=== PATIENT | male | born 1970 | race Caucasian/White ===

== ENCOUNTER 2017-04-05 10:13 | Inpatient (IN) | payer MEDICAID ==
[2017-04-05] MEDS ORDERED: Ondansetron 4 MG/2 ML SDV IVPUSH ONE (10:34)
[2017-04-05] MEDS ORDERED: Sodium Chloride 0.9% 1,000 ML IV STA (10:34)
[2017-04-05] MEDS ORDERED: HYDROmorphone 1 MG/ML Syringe IVPUSH ONE ×2 (10:36→12:41)
[2017-04-05] MEDS: Sodium Chloride 0.9% 10 ML Syringe FLUSH PRN (10:42)
[2017-04-05] MEDS ORDERED: HYDROmorphone 0.5 MG/0.5 ML Syringe IVPUSH ONE (11:12)
[2017-04-05] MEDS ORDERED: Sodium Chloride 0.9% 1,000 ML IV ONE (11:37)
--- NOTE | 2017-04-05 11:48 | EDM.PDOC ---
ED HPI GENERAL MEDICAL PROBLEM - General Chief Complaint: Abdominal Pain Stated Complaint: ABD PAIN Time Seen by Provider: 04/05/17 10:27 Source of Information: Reports: Patient History Limitations: Reports: No Limitations - History of Present Illness INITIAL COMMENTS - FREE TEXT/NARRATIVE: The patient presents with LUQ abdominal pain that radiates into his left chest. He has nausea with it but no vomiting. He has no diarrhea. He has no shortness of breath. He has a history of pancreatitis caused from alcohol. He has had a few flair ups. He last drank alcohol last weekend. He denies fever, chills, or cough. He has no dysuria. Onset: Gradual Duration: Day(s): (2) Location: Reports: Abdomen Quality: Reports: Sharp Severity: Moderate Improves with: Reports: None Worsens with: Reports: Eating Associated Symptoms: Reports: Chest Pain, Nausea/Vomiting. Denies: Fever/Chills , Shortness of Breath Left Abdomen Pain Score (Numeric/FACES): 10 - Related Data Allergies Allergy/AdvReac Type Severity Reaction Status Date / Time Penicillins Allergy Hives Verified 04/05/17 10:20 Home Meds: Home Meds . [No Known Home Meds] 04/05/17 [History] Past Medical History - Past Health History Medical/Surgical History: Denies Medical/Surgical History Gastrointestinal History: Reports: Pancreatitis Social & Family History - Family History Family Medical History: Noncontributory - Tobacco Use Smoking Status *Q: Never Smoker Second Hand Smoke Exposure: No - Recreational Drug Use Recreational Drug Use: No ED ROS GENERAL - Review of Systems Review Of Systems: See Below Constitutional: Reports: No Symptoms HEENT: Reports: No Symptoms Respiratory: Reports: No Symptoms Cardiovascular: Reports: No Symptoms Endocrine: Reports: No Symptoms GI/Abdominal: Reports: Abdominal Pain, Nausea. Denies: Diarrhea, Vomiting : Reports: No Symptoms Musculoskeletal: Reports: No Symptoms Skin: Reports: No Symptoms ED EXAM, GI/ABD - Physical Exam Exam: See Below Exam Limited By: No Limitations General Appearance: Alert, No Apparent Distress Ears: Normal External Exam Nose: Normal Inspection Head: Atraumatic, Normocephalic Neck: Normal Inspection Respiratory/Chest: No Respiratory Distress, Lungs Clear, Normal Breath Sounds Cardiovascular: Regular Rate, Rhythm, No Edema, No Murmur GI/Abdominal Exam: Soft, No Organomegaly, Tender (Generalized tenderness with more pain in the LUQ) Course - Vital Signs Last Recorded V/S: Last Vital Signs Temp 97.6 F 04/05/17 10:16 Pulse 84 04/05/17 10:16 Resp 16 04/05/17 10:16 BP 126/92 H 04/05/17 10:16 Pulse Ox 100 04/05/17 10:16 - Orders/Labs/Meds Orders: Active Orders 24 hr Category Date Time Status EKG 12 Lead [EKG Documentation Completion] [RC] STAT Care 04/05/17 10:37 Active Peripheral IV Care [RC] . DIRECTED Care 04/05/17 10:35 Active Abdomen Series w Chest 1V [CR] Stat Exams 04/05/17 10:34 Taken ETOH [ETHANOL BLOOD MEDICAL] [CHEM] Stat Lab 04/05/17 12:17 Ordered UA W/MICROSCOPIC [URIN] Stat Lab 04/05/17 10:34 Uncollected Sodium Chloride 0.9% [Saline Flush] Med 04/05/17 10:34 Active 10 ml FLUSH ASDIRECTED PRN ED Antiemetic Medication Reflex [OM.PC] Stat Oth 04/05/17 10:35 Ordered Peripheral IV Insertion Adult [OM.PC] Stat Oth 04/05/17 10:34 Ordered Medication Orders Sodium Chloride (Saline Flush) 10 ml FLUSH ASDIRECTED PRN PRN Reason: Keep Vein Open Last Admin: 04/05/17 10:42 Dose: 10 ml Labs: Laboratory Tests 04/05/17 04/05/17 Range/Units 10:34 10:34 WBC 13.68 H (4.23-9.07) K/mm3 RBC 5.92 (4.63-6.08) M/mm3 Hgb 16.3 (13.7-17.5) gm/L Hct 49.4 (40.1-51.0) % MCV 83.4 (79.0-92.2) fl MCH 27.5 (25.7-32.2) pg MCHC 33.0 (32.2-35.5) g/dl RDW Std Deviation 53.0 H (35.1-43.9) fL Plt Count 276 (163-337) K/mm3 MPV 10.8 (9.4-12.3) fl Neut % (Auto) 86.3 H (34.0-67.9) % Lymph % (Auto) 8.0 L (21.8-53.1) % Caldwell % (Auto) 4.6 L (5.3-12.2) % Eos % (Auto) 0.7 L (0.8-7.0) Baso % (Auto) 0.1 (0.1-1.2) % Neut # (Auto) 11.80 H (1.78-5.38) K/mm3 Lymph # (Auto) 1.10 L (1.32-3.57) K/mm3 Caldwell # (Auto) 0.63 (0.30-0.82) K/mm3 Eos # (Auto) 0.09 (0.04-0.54) K/mm3 Baso # (Auto) 0.02 (0.01-0.08) K/mm3 Manual Slide Review Abnormal smear Sodium 137 (136-145) mEq/L Potassium 4.6 (3.5-5.1) mEq/L Chloride 101 (98-107) mEq/L Carbon Dioxide 28 (21-32) mEq/L Anion Gap 12.6 (5-15) BUN 17 (7-18) mg/dL Creatinine 1.1 (0.7-1.3) mg/dL Est Cr Clr Drug Dosing 90.72 mL/min Estimated GFR (MDRD) > 60 (>60) mL/min BUN/Creatinine Ratio 15.5 (14-18) Glucose 98 (74-106) mg/dL Calcium 9.0 (8.5-10.1) mg/dL Total Bilirubin 1.3 H (0.2-1.0) mg/dL AST 34 (15-37) U/L ALT 47 (16-63) U/L Alkaline Phosphatase 77 (46-116) U/L Troponin I < 0.017 (0.00-0.056) ng/mL Total Protein 7.4 (6.4-8.2) g/dl Albumin 3.4 (3.4-5.0) g/dl Globulin 4.0 gm/dL Albumin/Globulin Ratio 0.9 L (1-2) Lipase 1732 H (73-393) U/L Meds: Medications Generic Name Dose Route Start Last Admin Trade Name Freq PRN Reason Stop Dose Admin Sodium Chloride 10 ml 04/05/17 10:34 04/05/17 10:42 Saline Flush FLUSH 10 ml ASDIRECTED PRN Administration Keep Vein Open Discontinued Medications Generic Name Dose Route Start Last Admin Trade Name Nolvia PRN Reason Stop Dose Admin Hydromorphone HCl 1 mg 04/05/17 10:36 04/05/17 10:41 Dilaudid IVPUSH 04/05/17 10:37 1 mg ONETIME ONE Administration Hydromorphone HCl 0.5 mg 04/05/17 11:12 04/05/17 11:17 Dilaudid IVPUSH 04/05/17 11:13 0.5 mg ONETIME ONE Administration Sodium Chloride 1,000 mls @ 1,000 mls/hr 04/05/17 10:34 04/05/17 10:42 Normal Saline IV 04/05/17 11:33 1,000 mls/hr .BOLUS STA Administration Sodium Chloride 1,000 mls @ 999 mls/hr 04/05/17 11:37 04/05/17 11:40 Normal Saline IV 04/05/17 12:37 999 mls/hr ONETIME ONE Administration Ondansetron HCl 4 mg 04/05/17 10:34 04/05/17 10:41 Zofran IVPUSH 04/05/17 10:35 4 mg ONETIME ONE Administration - Re-Assessments/Exams Free Text/Narrative Re-Assessment/Exam: 04/05/17 11:49 I ordered an IV NS 1L bolus, zofran 4mg IV, dilaudid 1mg IV, labs, UA and an x- ray. 04/05/17 12:38 His abdominal x-ray shows no ileus, obstruction or free air. His WBC was elevated at 13.68. His total bili is elevated at 1.3. His lipase was elevated at 1732. He needed something more for pain. I called Dr Simmons and she agreed to the admission. I will add an ETOH level. Departure - Departure Time of Disposition: 12:40 Disposition: Admitted As Inpatient 68 Condition: Fair Clinical Impression: Pancreatitis, alcoholic, acute Qualifiers: Acute pancreatitis complication: no infection or necrosis Qualified Code(s): K85.20 - Alcohol induced acute pancreatitis without necrosis or infection - Discharge Information - My Orders Last 24 Hours: My Active Orders 04/05/17 10:34 Abdomen Series w Chest 1V [CR] Stat UA W/MICROSCOPIC [URIN] Stat Sodium Chloride 0.9% [Saline Flush] 10 ml FLUSH ASDIRECTED PRN Peripheral IV Insertion Adult [OM.PC] Stat 04/05/17 10:35 Peripheral IV Care [RC] . DIRECTED ED Antiemetic Medication Reflex [OM.PC] Stat 04/05/17 10:37 EKG 12 Lead [EKG Documentation Completion] [RC] STAT 04/05/17 12:17 ETOH [ETHANOL BLOOD MEDICAL] [CHEM] Stat - Assessment/Plan Last 24 Hours: My Active Orders 04/05/17 10:34 Abdomen Series w Chest 1V [CR] Stat UA W/MICROSCOPIC [URIN] Stat Sodium Chloride 0.9% [Saline Flush] 10 ml FLUSH ASDIRECTED PRN Peripheral IV Insertion Adult [OM.PC] Stat 04/05/17 10:35 Peripheral IV Care [RC] . DIRECTED ED Antiemetic Medication Reflex [OM.PC] Stat 04/05/17 10:37 EKG 12 Lead [EKG Documentation Completion] [RC] STAT 04/05/17 12:17 ETOH [ETHANOL BLOOD MEDICAL] [CHEM] Stat
[2017-04-05] MEDS: Sodium Chloride 0.9% 1,000 ML IV SCH ×3 (12:56→18:47)
[2017-04-05] MEDS ORDERED: Ketorolac 60 MG/2 ML SDV IVPUSH ONE (13:28)
[2017-04-05] MEDS ORDERED: Ondansetron 4 MG/2 ML SDV IVPUSH PRN (13:41)
[2017-04-05] MEDS ORDERED: Prochlorperazine 10 MG/2 ML SDV IVPUSH PRN (13:43)
[2017-04-05] MEDS ORDERED: Enoxaparin 40 MG/0.4 ML Syringe SUBCUT ONE (13:45)
--- NOTE | 2017-04-05 14:02 | PCM.HP ---
H&P History of Present Illness - General Date of Service: 04/05/17 Admit Problem/Dx: Admission Diagnosis/Problem Admission Diagnosis/Problem Pancreatitis Source of Information: Patient, Provider History Limitations: Reports: No Limitations - History of Present Illness Initial Comments - Free Text/Narative: 46 year old male who has a PMH of pancreatitis reports no recent ETOH abuse; has mentioned fatty foods precipitating abdominal pain and subsequent admission for acute on chronic pancreatitis. he denies fever or chills, change in bowel habits. has had a decreased appetite, states that his last admission for acute pancreatitis occurred in [place]. An alcohol level is pending; he will be admitted to ICU, CIWA protocol will be started. An abdominal US has been ordered. Onset of Symptoms: Reports: Sudden Symptom Onset Date: 04/03/17 Duration of Symptoms: Reports: Day(s):, Getting Worse Location: Reports: Abdomen Quality: Reports: Same as Previous Episode, Sharp Severity: Moderate Improves with: Reports: Medication Worsens with: Reports: Eating Associated Symptoms: Reports: Loss of Appetite, Nausea/Vomiting Left Abdomen Pain Score (Numeric/FACES): 10 - Related Data Allergies/Adverse Reactions: Allergies Allergy/AdvReac Type Severity Reaction Status Date / Time Penicillins Allergy Hives Verified 04/05/17 13:29 Home Medications: Home Meds . [No Known Home Meds] 04/05/17 [History] Past Medical History - Past Health History Medical/Surgical History: Denies Medical/Surgical History Gastrointestinal History: Reports: Pancreatitis Social & Family History - Family History Family Medical History: Noncontributory - Tobacco Use Smoking Status *Q: Never Smoker Second Hand Smoke Exposure: No - Caffeine Use Caffeine Use: Reports: Coffee, Soda - Alcohol Use Days Per Week of Alcohol Use: 2 Number of Drinks Per Day: 0 Total Drinks Per Week: 0 Date of Last Drink: 03/28/17 - Recreational Drug Use Recreational Drug Use: No H&P Review of Systems - Review of Systems: Review Of Systems: See Below General: Reports: Malaise, Weakness HEENT: Reports: No Symptoms Pulmonary: Reports: No Symptoms Cardiovascular: Reports: No Symptoms Gastrointestinal: Reports: Abdominal Pain, Decreased Appetite Genitourinary: Reports: No Symptoms Musculoskeletal: Reports: No Symptoms Skin: Reports: No Symptoms Psychiatric: Reports: No Symptoms Neurological: Reports: No Symptoms Hematologic/Lymphatic: Reports: No Symptoms Immunologic: Reports: No Symptoms Exam - Exam Exam: See Below - Vital Signs Vital Signs: Last Vital Signs Temp 36.6 C 04/05/17 13:40 Pulse 82 04/05/17 13:40 Resp 22 H 04/05/17 13:40 BP 123/82 04/05/17 13:40 Pulse Ox 97 04/05/17 13:40 Weight: 75.206 kg - Exam Quality Assessment: DVT Prophylaxis General: Alert, Oriented, Cooperative, Mild Distress HEENT: Conjunctiva Clear, EACs Clear, Nares Patent, Normal Nasal Septum, Posterior Pharynx Clear, Pupils Equal, Pupils Reactive Neck: Supple, Trachea Midline Lungs: Clear to Auscultation, Normal Respiratory Effort Cardiovascular: Regular Rate, Regular Rhythm GI/Abdominal Exam: Normal Bowel Sounds, Soft, No Organomegaly, No Distention, Tender (RUQ) (Male) Exam: Deferred Rectal (Males) Exam: Deferred Back Exam: Normal Inspection Extremities: Normal Inspection Skin: Warm Neurological: Cranial Nerves Intact, Normal Speech Neuro Extensive - Mental Status: Alert, Oriented x3, Normal Mood/Affect, Normal Cognition, Memory Intact Neuro Extensive - Motor, Sensory, Reflexes: CN II-XII Intact Psychiatric: Alert, Normal Affect, Normal Mood - Patient Data Result Diagrams: 04/05/17 10:34 04/05/17 10:34 *Q Meaningful Use (ADM) - VTE *Q VTE Criteria *Q: - Stroke *Q Stroke Criteria *Q: - AMI *Q AMI Criteria *Q: - Problem List (1) Alcohol dependence SNOMED Code(s): 04316275, 333712133 ICD Code: F10.20 - ALCOHOL DEPENDENCE, UNCOMPLICATED Status: Acute Current Visit: Yes (2) Pancreatitis, alcoholic, acute SNOMED Code(s): 546476451 ICD Code: K85.20 - ALCOHOL INDUCED ACUTE PANCREATITIS WITHOUT NECROSIS OR INFCT Status: Acute Current Visit: Yes Qualifiers: Acute pancreatitis complication: no infection or necrosis Qualified Code(s) : K85.20 - Alcohol induced acute pancreatitis without necrosis or infection Problem List Initiated/Reviewed/Updated: Yes Orders Last 24hrs: Active Orders 24 hr Category Date Time Status Patient Status [ADT] Routine ADT 04/05/17 12:57 Active Antiembolic Devices [RC] , Care 04/05/17 13:44 Active Bedrest Bathroom Privileges [RC] ASDIRECTED Care 04/05/17 13:40 Active CIWAA Assessment [RC] ASDIRECTED Care 04/05/17 13:43 Active Vital Signs [RC] Q4HR Care 04/05/17 13:40 Active NPO [Nothing Per Oral Diet] [DIET] Diet 04/05/17 Lunch Active Abdomen Comp [US] Routine Exams 04/05/17 13:37 Ordered CBC WITH AUTO DIFF [HEME] DAILY Lab 04/06/17 05:00 Ordered CBC WITH AUTO DIFF [HEME] DAILY Lab 04/07/17 05:00 Ordered CBC WITH AUTO DIFF [HEME] DAILY Lab 04/08/17 05:00 Ordered CBC WITH AUTO DIFF [HEME] DAILY Lab 04/09/17 05:00 Ordered COMPREHENSIVE METABOLIC PN,CMP [CHEM] DAILY Lab 04/06/17 05:00 Ordered COMPREHENSIVE METABOLIC PN,CMP [CHEM] DAILY Lab 04/07/17 05:00 Ordered MAGNESIUM [CHEM] DAILY Lab 04/06/17 05:00 Ordered MAGNESIUM [CHEM] DAILY Lab 04/07/17 05:00 Ordered MAGNESIUM [CHEM] DAILY Lab 04/08/17 05:00 Ordered MAGNESIUM [CHEM] DAILY Lab 04/09/17 05:00 Ordered HYDROmorphone [Dilaudid] Med 04/05/17 13:39 Active 1 mg IVPUSH Q3H PRN Ketorolac [Toradol] Med 04/05/17 19:30 Active 30 mg IVPUSH Q6H MVI, Adult with Vitamin K [M.V.I. Adult] Med 04/06/17 09:00 Ordered 10 ml IV DAILY Ondansetron [Zofran] Med 04/05/17 13:41 Active 4 mg IVPUSH Q8H PRN Pantoprazole [ProTONIX IV] Med 04/05/17 14:00 Active 40 mg IVPUSH Q12H Prochlorperazine [Compazine] Med 04/05/17 13:43 Active 10 mg IVPUSH Q6H PRN Sodium Chloride 0.9% [Normal Saline] 1,000 ml Med 04/05/17 13:00 Active IV ASDIRECTED Seizure Precautions [OM.PC] Routine Oth 04/05/17 13:43 Ordered MER Hose [Antiembolic Hose] [OM.PC] Routine Oth 04/05/17 13:44 Ordered Medication Orders Hydromorphone HCl (Dilaudid) 1 mg IVPUSH Q3H PRN PRN Reason: Pain (moderate 4-6) Sodium Chloride (Normal Saline) 1,000 mls @ 200 mls/hr IV ASDIRECTED SAJAN Last Admin: 04/05/17 12:56 Dose: 150 mls/hr Ketorolac Tromethamine (Toradol) 30 mg IVPUSH Q6H SAJAN Stop: 04/07/17 13:31 Multivitamins/Minerals (M.V.I. Adult) 10 ml IV DAILY SAJAN Ondansetron HCl (Zofran) 4 mg IVPUSH Q8H PRN PRN Reason: Nausea/Vomiting Pantoprazole Sodium (Protonix Iv) 40 mg IVPUSH Q12H SAJAN Prochlorperazine Edisylate (Compazine) 10 mg IVPUSH Q6H PRN PRN Reason: Nausea/Vomiting Sodium Chloride (Saline Flush) 10 ml FLUSH ASDIRECTED PRN PRN Reason: Keep Vein Open Last Admin: 04/05/17 10:42 Dose: 10 ml Assessment/Plan Comment:: Impression: Acute on chronic pancreatitis Abdominal pain, associated with fatty food Query GB pancreatitis History of alcohol dependence Last ETOH reportedly 5-7 days ago Tobacco dependence, Snuff Plan: ICU admission NPO Pain mgt IVF CIWA protocol SZ precautions Abd US re: GB but will order complete Gen Surg consult if needed. DVT/GI prophylaxis
[2017-04-05] MEDS: Pantoprazole 40 MG Vial IVPUSH SCH (14:23)
[2017-04-05] MEDS: HYDROmorphone 1 MG/ML Syringe IVPUSH PRN ×2 (16:47→21:04)
--- NOTE | 2017-04-05 18:22 | PCM.CONSN ---
- General Info Date of Service: 04/05/17 - Patient Data Vitals - most recent: Last Vital Signs Temp 97.8 F 04/05/17 13:40 Pulse 78 04/05/17 16:00 Resp 20 04/05/17 16:00 BP 109/82 04/05/17 16:00 Pulse Ox 96 04/05/17 16:00 Weight - most recent: 75.206 kg Med Orders - Current: Current Medications Hydromorphone HCl (Dilaudid) 1 mg IVPUSH Q3H PRN PRN Reason: Pain (moderate 4-6) Last Admin: 04/05/17 16:47 Dose: 1 mg Sodium Chloride (Normal Saline) 1,000 mls @ 100 mls/hr IV ASDIRECTED SAJAN Ketorolac Tromethamine (Toradol) 30 mg IVPUSH Q6H SAJAN Stop: 04/07/17 13:31 Ondansetron HCl (Zofran) 4 mg IVPUSH Q8H PRN PRN Reason: Nausea/Vomiting Pantoprazole Sodium (Protonix Iv) 40 mg IVPUSH Q12H [facility] Last Admin: 04/05/17 14:23 Dose: 40 mg Prochlorperazine Edisylate (Compazine) 10 mg IVPUSH Q6H PRN PRN Reason: Nausea/Vomiting Sodium Chloride (Saline Flush) 10 ml FLUSH ASDIRECTED PRN PRN Reason: Keep Vein Open Last Admin: 04/05/17 10:42 Dose: 10 ml Discontinued Medications Enoxaparin Sodium (Lovenox) 40 mg SUBCUT DAILY ONE Stop: 04/05/17 13:46 Last Admin: 04/05/17 14:23 Dose: 40 mg Hydromorphone HCl (Dilaudid) 1 mg IVPUSH ONETIME ONE Stop: 04/05/17 10:37 Last Admin: 04/05/17 10:41 Dose: 1 mg Hydromorphone HCl (Dilaudid) 0.5 mg IVPUSH ONETIME ONE Stop: 04/05/17 11:13 Last Admin: 04/05/17 11:17 Dose: 0.5 mg Hydromorphone HCl (Dilaudid) 1 mg IVPUSH ONETIME ONE Stop: 04/05/17 12:42 Last Admin: 04/05/17 12:47 Dose: 1 mg Sodium Chloride (Normal Saline) 1,000 mls @ 1,000 mls/hr IV .BOLUS STA Stop: 04/05/17 11:33 Last Admin: 04/05/17 10:42 Dose: 1,000 mls/hr Sodium Chloride (Normal Saline) 1,000 mls @ 999 mls/hr IV ONETIME ONE Stop: 04/05/17 12:37 Last Admin: 04/05/17 11:40 Dose: 999 mls/hr Sodium Chloride (Normal Saline) 1,000 mls @ 200 mls/hr IV ASDIRECTED SAJAN Stop: 04/05/17 17:59 Last Admin: 04/05/17 16:48 Dose: Not Given Ketorolac Tromethamine (Toradol) 60 mg IVPUSH ONETIME ONE Stop: 04/05/17 13:29 Last Admin: 04/05/17 13:38 Dose: 60 mg Multivitamins/Minerals (M.V.I. Adult) 10 ml IV DAILY [facility] Ondansetron HCl (Zofran) 4 mg IVPUSH ONETIME ONE Stop: 04/05/17 10:35 Last Admin: 04/05/17 10:41 Dose: 4 mg Consult PN Assessment/Plan Problem List Initiated/Reviewed/Updated: Yes My Orders last 24 hours: surgical consult dictated PRATEEK
[2017-04-05] MEDS ORDERED: traZODone 50 MG Tab PO PRN (19:20)
[2017-04-05] MEDS: Ketorolac 30 MG/ML SDV IVPUSH SCH (19:37)
[2017-04-06] MEDS: HYDROmorphone 1 MG/ML Syringe IVPUSH PRN ×6 (00:15→22:04)
[2017-04-06] MEDS: Pantoprazole 40 MG Vial IVPUSH SCH ×2 (01:00→13:10)
[2017-04-06] MEDS: Ketorolac 30 MG/ML SDV IVPUSH SCH ×4 (01:00→20:08)
[2017-04-06] MEDS: Sodium Chloride 0.9% 1,000 ML IV SCH ×2 (04:54→15:04)
--- NOTE | 2017-04-06 06:50 | US ---
Abdominal ultrasound: Multiple real-time images of the abdomen were obtained. Comparison: No previous study. Findings: Large complex fluid collection is seen within the right upper abdomen measuring approximately 10.3 cm. Small amount of fluid seen next to the liver. Incidental cyst noted within the mid to upper right kidney measuring 2.4 cm. Liver shows no focal abnormality. Gallbladder shows no gallstones. No gallbladder wall thickening is seen. No biliary duct dilatation is seen. Other than the abnormal fluid collection next to the pancreas the pancreas is otherwise unremarkable. Aorta shows no aneurysmal dilatation. No retroperitoneal adenopathy is seen. Inferior vena cava is patent. Spleen size is normal. Impression: 1. 10.3 cm complicated fluid collection within the right abdomen next to the pancreas. This most likely due to pseudocyst from previous pancreatitis given the patient's history of pancreatitis. 2. Incidental renal cyst. 3. Mild amount of ascites next to the liver. Diagnostic code #3 I agree with preliminary report issued by [facility] ([facility] report finalized on - time of preliminary report not available at time of official dictation)
--- NOTE | 2017-04-06 06:50 | CR ---
Abdominal series: Supine and upright views of the abdomen were obtained as well as frontal view of the chest. Comparison: No previous study. Mild increased density within the left lung base is seen. Lungs otherwise are clear. Bowel gas pattern appears normal. No abnormal calcifications or soft tissue abnormality is seen. Bony structures are within normal limits for the patient's age. Impression: 1. Mild increased density within the left lung base. Differential includes atelectasis and/or pneumonia. Please correlate with the patient's symptoms. 2. Abdominal series is otherwise unremarkable. Diagnostic code #3
[2017-04-06] MEDS ORDERED: MVI, Adult with Vitamin K 10 ML SDV IV SCH (09:00)
--- NOTE | 2017-04-06 09:13 | PCM.PN ---
- General Info Date of Service: 04/06/17 Functional Status: Reports: Pain Controlled, Tolerating Diet (trial clear liquids), Ambulating, Urinating - Review of Systems General: Reports: No Symptoms HEENT: Reports: No Symptoms Pulmonary: Reports: No Symptoms Cardiovascular: Reports: No Symptoms Gastrointestinal: Reports: Abdominal Pain (mild) Genitourinary: Reports: No Symptoms Musculoskeletal: Reports: No Symptoms Skin: Reports: No Symptoms Neurological: Reports: No Symptoms Psychiatric: Reports: No Symptoms - Patient Data Vitals - most recent: Last Vital Signs Temp 36.9 C 04/06/17 08:00 Pulse 85 04/06/17 08:00 Resp 18 04/06/17 08:00 BP 111/60 04/06/17 08:00 Pulse Ox 96 04/06/17 08:00 Weight - most recent: 75.75 kg I&O - last 24 hours: Intake & Output 04/05/17 04/06/17 04/06/17 22:59 06:59 14:59 Intake Total 1918 Output Total 300 200 250 Balance -300 1718 -250 Lab Results last 24 hrs: Laboratory Results - last 24 hr 04/05/17 04/06/17 04/06/17 Range/Units 18:50 06:10 06:10 WBC 15.79 H (4.23-9.07) K/mm3 RBC 5.16 (4.63-6.08) M/mm3 Hgb 14.3 (13.7-17.5) gm/L Hct 44.8 (40.1-51.0) % MCV 86.8 (79.0-92.2) fl MCH 27.7 (25.7-32.2) pg MCHC 31.9 L (32.2-35.5) g/dl RDW Std Deviation 55.4 H (35.1-43.9) fL Plt Count 205 (163-337) K/mm3 MPV 10.8 (9.4-12.3) fl Neut % (Auto) 90.7 H (34.0-67.9) % Lymph % (Auto) 4.0 L (21.8-53.1) % [place] % (Auto) 4.9 L (5.3-12.2) % Eos % (Auto) 0.1 L (0.8-7.0) Baso % (Auto) 0.1 (0.1-1.2) % Neut # (Auto) 14.33 H (1.78-5.38) K/mm3 Lymph # (Auto) 0.63 L (1.32-3.57) K/mm3 [place] # (Auto) 0.77 (0.30-0.82) K/mm3 Eos # (Auto) 0.02 L (0.04-0.54) K/mm3 Baso # (Auto) 0.01 (0.01-0.08) K/mm3 Manual Slide Review Abnormal smear Sodium 138 (136-145) mEq/L Potassium 4.5 (3.5-5.1) mEq/L Chloride 105 (98-107) mEq/L Carbon Dioxide 23 (21-32) mEq/L Anion Gap 14.5 (5-15) BUN 18 (7-18) mg/dL Creatinine 1.0 (0.7-1.3) mg/dL Est Cr Clr Drug Dosing 100.40 mL/min Estimated GFR (MDRD) > 60 (>60) mL/min BUN/Creatinine Ratio 18.0 (14-18) Glucose 76 (74-106) mg/dL Calcium 8.2 L (8.5-10.1) mg/dL Magnesium 1.4 L (1.8-2.4) mg/dl Total Bilirubin 1.0 (0.2-1.0) mg/dL AST 18 (15-37) U/L ALT 30 (16-63) U/L Alkaline Phosphatase 55 (46-116) U/L Total Protein 5.9 L (6.4-8.2) g/dl Albumin 2.5 L (3.4-5.0) g/dl Globulin 3.4 gm/dL Albumin/Globulin Ratio 0.7 L (1-2) Urine Color Light orange (Yellow) Urine Appearance Slt cloudy H (Clear) Urine pH 5.5 (5.0-8.0) Ur Specific [place] > or = 1.030 (1.005-1.030) Urine Protein 1+ H (Negative) Urine Glucose (UA) Negative (Negative) Urine Ketones 1+ H (Negative) Urine Occult Blood Negative (Negative) Urine Nitrite Positive H (Negative) Urine Bilirubin 2+ H (Negative) Urine Urobilinogen 0.2 (0.2-1.0) Ur Leukocyte Esterase Negative (Negative) Urine RBC 0-5 (0-5) /hpf Urine WBC 5-10 H (0-5) /hpf Ur Epithelial Cells 0-5 (0-5) /hpf Urine Bacteria Moderate H (FEW) /hpf Urine Mucus Many H (FEW) /hpf Med Orders - Current: Current Medications Hydromorphone HCl (Dilaudid) 1 mg IVPUSH Q3H PRN PRN Reason: Pain (moderate 4-6) Last Admin: 04/06/17 08:48 Dose: 1 mg Sodium Chloride (Normal Saline) 1,000 mls @ 100 mls/hr IV ASDIRECTED [facility] Last Admin: 04/06/17 04:54 Dose: 100 mls/hr Ketorolac Tromethamine (Toradol) 30 mg IVPUSH Q6H [facility] Stop: 04/07/17 13:31 Last Admin: 04/06/17 08:02 Dose: 30 mg Ondansetron HCl (Zofran) 4 mg IVPUSH Q8H PRN PRN Reason: Nausea/Vomiting Last Admin: 04/06/17 04:54 Dose: 4 mg Pantoprazole Sodium (Protonix Iv) 40 mg IVPUSH Q12H [facility] Last Admin: 04/06/17 01:00 Dose: 40 mg Prochlorperazine Edisylate (Compazine) 10 mg IVPUSH Q6H PRN PRN Reason: Nausea/Vomiting Sodium Chloride (Saline Flush) 10 ml FLUSH ASDIRECTED PRN PRN Reason: Keep Vein Open Last Admin: 04/05/17 10:42 Dose: 10 ml Trazodone HCl (Trazodone) 50 mg PO BEDTIME PRN PRN Reason: Sleep Discontinued Medications Enoxaparin Sodium (Lovenox) 40 mg SUBCUT DAILY ONE Stop: 04/05/17 13:46 Last Admin: 04/05/17 14:23 Dose: 40 mg Hydromorphone HCl (Dilaudid) 1 mg IVPUSH ONETIME ONE Stop: 04/05/17 10:37 Last Admin: 04/05/17 10:41 Dose: 1 mg Hydromorphone HCl (Dilaudid) 0.5 mg IVPUSH ONETIME ONE Stop: 04/05/17 11:13 Last Admin: 04/05/17 11:17 Dose: 0.5 mg Hydromorphone HCl (Dilaudid) 1 mg IVPUSH ONETIME ONE Stop: 04/05/17 12:42 Last Admin: 04/05/17 12:47 Dose: 1 mg Sodium Chloride (Normal Saline) 1,000 mls @ 1,000 mls/hr IV .BOLUS STA Stop: 04/05/17 11:33 Last Admin: 04/05/17 10:42 Dose: 1,000 mls/hr Sodium Chloride (Normal Saline) 1,000 mls @ 999 mls/hr IV ONETIME ONE Stop: 04/05/17 12:37 Last Admin: 04/05/17 11:40 Dose: 999 mls/hr Sodium Chloride (Normal Saline) 1,000 mls @ 200 mls/hr IV ASDIRECTED SAJAN Stop: 04/05/17 17:59 Last Admin: 04/05/17 16:48 Dose: Not Given Ketorolac Tromethamine (Toradol) 60 mg IVPUSH ONETIME ONE Stop: 04/05/17 13:29 Last Admin: 04/05/17 13:38 Dose: 60 mg Multivitamins/Minerals (M.V.I. Adult) 10 ml IV DAILY [facility] Ondansetron HCl (Zofran) 4 mg IVPUSH ONETIME ONE Stop: 04/05/17 10:35 Last Admin: 04/05/17 10:41 Dose: 4 mg - Exam Quality Assessment: DVT prophylaxis General: alert, oriented, cooperative, no acute distress HEENT: Pupils equal, Pupils reactive, EOMI, Mucous membr. moist/pink Neck: supple, trachea midline Lungs: Normal Respiratory Effort Cardiovascular: Regular Rate, Regular Rhythm GI/Abdominal Exam: Normal Bowel Sounds, Soft, Non-Tender, No Organomegaly, No Distention (Male) Exam: Deferred Back Exam: Normal Inspection Extremities: Normal Inspection, No Pedal Edema Skin: warm Neurological: no new focal deficit, normal speech Psy/Mental Status: alert, normal affect, normal mood - Problem List & Annotations (1) Alcohol dependence SNOMED Code(s): 04924281, 607230696 Code(s): F10.20 - ALCOHOL DEPENDENCE, UNCOMPLICATED Status: Acute Current Visit: Yes (2) Pancreatitis, alcoholic, acute SNOMED Code(s): 296097273 Code(s): K85.20 - ALCOHOL INDUCED ACUTE PANCREATITIS WITHOUT NECROSIS OR INFCT Status: Acute Current Visit: Yes Qualifiers: Acute pancreatitis complication: no infection or necrosis Qualified Code(s) : K85.20 - Alcohol induced acute pancreatitis without necrosis or infection - Problem List Review Problem List Initiated/Reviewed/Updated: Yes - My Orders Last 24 Hours: My Active Orders 04/05/17 13:39 HYDROmorphone [Dilaudid] 1 mg IVPUSH Q3H PRN 04/05/17 13:40 Bedrest Bathroom Privileges [RC] ASDIRECTED Vital Signs [RC] Q4HR 04/05/17 13:41 Ondansetron [Zofran] 4 mg IVPUSH Q8H PRN 04/05/17 13:43 CIWAA Assessment [RC] Q4HR Prochlorperazine [Compazine] 10 mg IVPUSH Q6H PRN Seizure Precautions [OM.PC] Routine 04/05/17 13:44 Antiembolic Devices [RC] 10,22 MER Hose [Antiembolic Hose] [OM.PC] Routine 04/05/17 14:00 Pantoprazole [ProTONIX IV] 40 mg IVPUSH Q12H 04/05/17 16:23 Communication Order [RC] ROUTINE 04/05/17 17:22 Consult to Physician [CONS] Routine 04/05/17 17:23 Notify Provider Consults [RC] ASDIRECTED 04/05/17 18:00 Sodium Chloride 0.9% [Normal Saline] 1,000 ml IV ASDIRECTED 04/05/17 19:20 traZODone 50 mg PO BEDTIME PRN 04/05/17 19:30 Ketorolac [Toradol] 30 mg IVPUSH Q6H 04/05/17 Lunch NPO [Nothing Per Oral Diet] [DIET] 04/07/17 05:00 CBC WITH AUTO DIFF [HEME] DAILY COMPREHENSIVE METABOLIC PN,CMP [CHEM] DAILY MAGNESIUM [CHEM] DAILY 04/08/17 05:00 CBC WITH AUTO DIFF [HEME] DAILY MAGNESIUM [CHEM] DAILY 04/09/17 05:00 CBC WITH AUTO DIFF [HEME] DAILY MAGNESIUM [CHEM] DAILY - Plan Plan:: Impression: Acute on chronic pancreatitis/pancreatic pseudocyst on US Abdominal pain, associated with fatty food History of alcohol dependence Last ETOH reportedly 5-7 days ago Tobacco dependence, Snuff Plan: Clear liquids Pain mgt IVF CIWA protocol SZ precautions Gen Surg, will follow DVT/GI prophylaxis
[2017-04-06] MEDS: Levofloxacin/Dextrose 5%-Water 750 MG in Premix Bag 1 BAG IV SCH (09:41)
[2017-04-06] MEDS ORDERED: Magnesium Sulfate/Water 2 GM in Premix Bag 1 BAG IV ONE (13:00)
[2017-04-06] MEDS: Sodium Chloride 0.9% 10 ML Syringe FLUSH PRN (20:11)
[2017-04-07] MEDS: Ketorolac 30 MG/ML SDV IVPUSH SCH ×3 (01:06→13:40)
[2017-04-07] MEDS: Sodium Chloride 0.9% 1,000 ML IV SCH ×3 (01:06→21:22)
[2017-04-07] MEDS: HYDROmorphone 1 MG/ML Syringe IVPUSH PRN ×5 (01:07→15:47)
[2017-04-07] MEDS: Pantoprazole 40 MG Vial IVPUSH SCH ×2 (01:07→13:40)
[2017-04-07] MEDS: Levofloxacin/Dextrose 5%-Water 750 MG in Premix Bag 1 BAG IV SCH (09:38)
--- NOTE | 2017-04-07 10:43 | CONS ---
CONSULTING PHYSICIAN: Jony Paulino MD DATE OF CONSULTATION: 04/05/2017 HISTORY OF PRESENT ILLNESS: The patient is a 46-year-old male who came in through the emergency room with abdominal pain. The abdominal pain began Friday, was constant, epigastric, and slowly built up within about an hour or two severe pain. This was associated with a loss of appetite. He came into the emergency room where he was noted to have pancreatitis with elevated lipase of 1700. Patient states that prior to this, over the last 2 weeks, he has been having some intermittent pain that would resolve with change of his appetite and eating yogurt. Ultrasound was then performed showing an 11 cm pseudocyst in the head of the pancreas. The patient states that he has noted to have this in November. At that time, he was in [place] and they diagnosed him and he was set up for evaluation at [facility] in [place], [place], on [facility]. The patient has alcoholic history, considered an alcoholic, and he stopped drinking in November. The patient does state that he has not had a drink until about a week ago, he had some alcohol. Patient states that during the time between his diagnosis in [place] and his evaluation in [place] in February or March 25, he had multiple CT scans and ultrasounds, and it was elected at that time that the cyst had resolved and no further treatment was needed. They were planning to do a stent. REVIEW OF SYSTEMS: The patient at times does have a poor appetite, abdominal pain. No chills or fever. No real weight loss. No gas pain. No bleeding. No melena or vomiting blood. SOCIAL HISTORY: [place] He does not smoke and has never smoked. MEDICATIONS: Per medication reconciliation form. ALLERGIES: No known allergies. LABORATORY DATA: Reviewed. PHYSICAL EXAMINATION: GENERAL: Reveals alert and cooperative male. VITAL SIGNS: Pulse is 85, blood pressure 145/76, respiration rate 18 to 20, sats 99%, temperature 97.8. EYES: Sclerae white. Extraocular muscle motion normal. Oral cavity: Healthy mucous membrane with mouth and tongue. NECK: Supple. No nodes. No thyromegaly. LUNGS: Clear. No rales, rhonchi, fremitus, or dullness. HEART: Heart tones regular rate. EXTREMITIES: Upper and lower extremities no angulation deformities. MUSCULOSKELETAL: Moves all 4 extremities. NEUROLOGIC: 3 through 12 intact. No sensorineural deficit. PSYCHIATRIC: Normal. SKIN: Warm and dry. ABDOMEN: Distended. Tenderness in most of the upper abdomen with rigidity. ASSESSMENT: 1. Pancreatic pseudocyst, 11 cm, head of the pancreas. 2. History of alcohol use ultrasound, the absence of gallstones. RECOMMENDATION: My recommendation is that he be transferred to a higher center where this pseudocyst could be stented. Discussed this with the patient and Dr. Simmons. MMODAL /[id number]
[2017-04-07] MEDS ORDERED: Tamsulosin 0.4 MG Cap.ER PO SCH (12:00)
[2017-04-07] MEDS: Tamsulosin 0.4 MG Cap.ER PO SCH (13:48)
--- NOTE | 2017-04-07 14:31 | PCM.PN ---
- General Info Date of Service: 04/07/17 Functional Status: Reports: Pain Controlled, Tolerating Diet (now NPO) - Review of Systems General: Reports: No Symptoms HEENT: Reports: No Symptoms Pulmonary: Reports: No Symptoms Cardiovascular: Reports: No Symptoms Gastrointestinal: Reports: No Symptoms Genitourinary: Reports: Frequency Musculoskeletal: Reports: No Symptoms Skin: Reports: No Symptoms Neurological: Reports: No Symptoms Psychiatric: Reports: No Symptoms - Patient Data Vitals - Most Recent: Last Vital Signs Temp 36.3 C 04/07/17 12:00 Pulse 95 04/07/17 12:00 Resp 16 04/07/17 12:00 BP 115/80 04/07/17 12:00 Pulse Ox 100 04/07/17 12:00 Weight - Most Recent: 78.471 kg I&O - Last 24 Hours: Intake & Output 04/06/17 04/07/17 04/07/17 22:59 06:59 14:59 Intake Total 1085 1650 240 Output Total 100 300 245 Balance 985 1350 -5 Lab Results Last 24 Hours: Laboratory Results - last 24 hr 04/07/17 04/07/17 Range/Units 05:57 05:57 WBC 11.13 H (4.23-9.07) K/mm3 RBC 4.68 (4.63-6.08) M/mm3 Hgb 13.0 L (13.7-17.5) gm/L Hct 40.7 (40.1-51.0) % MCV 87.0 (79.0-92.2) fl MCH 27.8 (25.7-32.2) pg MCHC 31.9 L (32.2-35.5) g/dl RDW Std Deviation 56.4 H (35.1-43.9) fL Plt Count 160 L (163-337) K/mm3 MPV 10.5 (9.4-12.3) fl Neut % (Auto) 85.0 H (34.0-67.9) % Lymph % (Auto) 5.8 L (21.8-53.1) % [place] % (Auto) 7.5 (5.3-12.2) % Eos % (Auto) 1.4 (0.8-7.0) Baso % (Auto) 0.1 (0.1-1.2) % Neut # (Auto) 9.46 H (1.78-5.38) K/mm3 Lymph # (Auto) 0.64 L (1.32-3.57) K/mm3 [place] # (Auto) 0.84 H (0.30-0.82) K/mm3 Eos # (Auto) 0.16 (0.04-0.54) K/mm3 Baso # (Auto) 0.01 (0.01-0.08) K/mm3 Manual Slide Review Abnormal smear Sodium 138 (136-145) mEq/L Potassium 4.3 (3.5-5.1) mEq/L Chloride 103 (98-107) mEq/L Carbon Dioxide 30 (21-32) mEq/L Anion Gap 9.3 (5-15) BUN 15 (7-18) mg/dL Creatinine 1.0 (0.7-1.3) mg/dL Est Cr Clr Drug Dosing 100.40 mL/min Estimated GFR (MDRD) > 60 (>60) mL/min BUN/Creatinine Ratio 15.0 (14-18) Glucose 88 (74-106) mg/dL Calcium 8.2 L (8.5-10.1) mg/dL Magnesium 1.6 L (1.8-2.4) mg/dl Total Bilirubin 1.0 (0.2-1.0) mg/dL AST 15 (15-37) U/L ALT 23 (16-63) U/L Alkaline Phosphatase 51 (46-116) U/L C-Reactive Protein 20.0 H* (<1.0) mg/dL Total Protein 5.5 L (6.4-8.2) g/dl Albumin 2.2 L (3.4-5.0) g/dl Globulin 3.3 gm/dL Albumin/Globulin Ratio 0.7 L (1-2) Lipase 1994 H (73-393) U/L Med Orders - Current: Current Medications Hydromorphone HCl (Dilaudid) 1 mg IVPUSH Q3H PRN PRN Reason: Pain (moderate 4-6) Last Admin: 04/07/17 11:26 Dose: 1 mg Sodium Chloride (Normal Saline) 1,000 mls @ 100 mls/hr IV ASDIRECTED [facility] Last Admin: 04/07/17 10:49 Dose: 100 mls/hr Levofloxacin/Dextrose 750 mg/ (Premix) 150 mls @ 100 mls/hr IV Q24H SAJAN Last Admin: 04/07/17 09:38 Dose: 100 mls/hr Magnesium Sulfate 2 gm/ Premix 50 mls @ 25 mls/hr IV ONETIME ONE Stop: 04/07/17 16:59 Last Admin: 04/07/17 14:27 Dose: 25 mls/hr Ondansetron HCl (Zofran) 4 mg IVPUSH Q8H PRN PRN Reason: Nausea/Vomiting Last Admin: 04/06/17 04:54 Dose: 4 mg Pantoprazole Sodium (Protonix Iv) 40 mg IVPUSH Q12H SAJAN Last Admin: 04/07/17 13:40 Dose: 40 mg Prochlorperazine Edisylate (Compazine) 10 mg IVPUSH Q6H PRN PRN Reason: Nausea/Vomiting Sodium Chloride (Saline Flush) 10 ml FLUSH ASDIRECTED PRN PRN Reason: Keep Vein Open Last Admin: 04/06/17 20:11 Dose: 10 ml Tamsulosin HCl (Flomax) 0.4 mg PO DAILY [facility] Last Admin: 04/07/17 13:48 Dose: 0.4 mg Trazodone HCl (Trazodone) 50 mg PO BEDTIME PRN PRN Reason: Sleep Discontinued Medications Enoxaparin Sodium (Lovenox) 40 mg SUBCUT DAILY ONE Stop: 04/05/17 13:46 Last Admin: 04/05/17 14:23 Dose: 40 mg Hydromorphone HCl (Dilaudid) 1 mg IVPUSH ONETIME ONE Stop: 04/05/17 10:37 Last Admin: 04/05/17 10:41 Dose: 1 mg Hydromorphone HCl (Dilaudid) 0.5 mg IVPUSH ONETIME ONE Stop: 04/05/17 11:13 Last Admin: 04/05/17 11:17 Dose: 0.5 mg Hydromorphone HCl (Dilaudid) 1 mg IVPUSH ONETIME ONE Stop: 04/05/17 12:42 Last Admin: 04/05/17 12:47 Dose: 1 mg Sodium Chloride (Normal Saline) 1,000 mls @ 1,000 mls/hr IV .BOLUS STA Stop: 04/05/17 11:33 Last Admin: 04/05/17 10:42 Dose: 1,000 mls/hr Sodium Chloride (Normal Saline) 1,000 mls @ 999 mls/hr IV ONETIME ONE Stop: 04/05/17 12:37 Last Admin: 04/05/17 11:40 Dose: 999 mls/hr Sodium Chloride (Normal Saline) 1,000 mls @ 200 mls/hr IV ASDIRECTED [facility]JAN Stop: 04/05/17 17:59 Last Admin: 04/05/17 16:48 Dose: Not Given Magnesium Sulfate 2 gm/ Premix 50 mls @ 25 mls/hr IV ONETIME ONE Stop: 04/06/17 14:59 Last Admin: 04/06/17 13:10 Dose: 25 mls/hr Ketorolac Tromethamine (Toradol) 60 mg IVPUSH ONETIME ONE Stop: 04/05/17 13:29 Last Admin: 04/05/17 13:38 Dose: 60 mg Ketorolac Tromethamine (Toradol) 30 mg IVPUSH Q6H SAJAN Stop: 04/07/17 13:31 Last Admin: 04/07/17 13:40 Dose: 30 mg Multivitamins/Minerals (M.V.I. Adult) 10 ml IV DAILY [facility]JAN Ondansetron HCl (Zofran) 4 mg IVPUSH ONETIME ONE Stop: 04/05/17 10:35 Last Admin: 04/05/17 10:41 Dose: 4 mg Tamsulosin HCl (Flomax) 0.4 mg PO DAILY SAJAN - Exam Quality Assessment: DVT Prophylaxis General: Alert, Oriented, Cooperative, No Acute Distress HEENT: Pupils Equal, Pupils Reactive, EOMI, Mucous Membr. Moist/[place] Neck: Supple, Trachea Midline, No JVD Lungs: Normal Respiratory Effort Cardiovascular: Regular Rate, Regular Rhythm GI/Abdominal Exam: Normal Bowel Sounds, Soft, No Organomegaly, No Distention, Tender (RUQ) (Male) Exam: Deferred Back Exam: Normal Inspection Extremities: Normal Inspection, Normal Range of Motion, Non-Tender, No Pedal Edema Skin: Warm Neurological: No New Focal Deficit, Normal Gait, Normal Speech Psy/Mental Status: Alert, Normal Affect, Normal Mood - Problem List & Annotations (1) Alcohol dependence SNOMED Code(s): 37653291, [id number] Code(s): F10.20 - ALCOHOL DEPENDENCE, UNCOMPLICATED Status: Acute Current Visit: Yes (2) Pancreatitis, alcoholic, acute SNOMED Code(s): 628660646 Code(s): K85.20 - ALCOHOL INDUCED ACUTE PANCREATITIS WITHOUT NECROSIS OR INFCT Status: Acute Current Visit: Yes Qualifiers: Acute pancreatitis complication: no infection or necrosis Qualified Code(s) : K85.20 - Alcohol induced acute pancreatitis without necrosis or infection - Problem List Review Problem List Initiated/Reviewed/Updated: Yes - My Orders Last 24 Hours: My Active Orders 04/07/17 07:15 Code Status [Resuscitation Status] Routine 04/07/17 10:14 Activity as Tolerated [RC] .Routine 04/07/17 13:30 Tamsulosin [Flomax] 0.4 mg PO DAILY 04/07/17 15:00 Magnesium Sulfate/Water [Magnesium Sulfate 2 GM in Water 50 ML] 2 gm Premix Bag 1 bag IV ONETIME 04/07/17 Lunch NPO [Nothing Per Oral Diet] [DIET] 04/08/17 05:00 CBC WITH AUTO DIFF [HEME] DAILY CRP [C-REACTIVE PROTEIN] [CHEM] DAILY LIPASE [CHEM] DAILY MAGNESIUM [CHEM] DAILY 04/08/17 05:40 BMP [BASIC METABOLIC PANEL,BMP] [CHEM] DAILY 04/09/17 05:00 CBC WITH AUTO DIFF [HEME] DAILY CRP [C-REACTIVE PROTEIN] [CHEM] DAILY LIPASE [CHEM] DAILY MAGNESIUM [CHEM] DAILY 04/09/17 05:40 BMP [BASIC METABOLIC PANEL,BMP] [CHEM] DAILY 04/10/17 05:00 CRP [C-REACTIVE PROTEIN] [CHEM] DAILY LIPASE [CHEM] DAILY 04/10/17 05:40 BMP [BASIC METABOLIC PANEL,BMP] [CHEM] DAILY - Plan Plan:: Impression: Acute on chronic pancreatitis/pancreatic pseudocyst on US Abdominal pain, associated with fatty food; elevated lipase after clear liquids History of alcohol dependence Last ETOH reportedly 5-7 days ago Tobacco dependence, Snuff Plan: Clear liquids--stopped, now NPO Pain mgt IVF CIWA protocol SZ precautions Gen Surg, will follow DVT/GI prophylaxis
[2017-04-07] MEDS ORDERED: Magnesium Sulfate/Water 2 GM in Premix Bag 1 BAG IV ONE (15:00)
[2017-04-07] MEDS: Acetaminophen/HYDROcodone 325-5 MG Tab PO PRN (19:48)
[2017-04-08] MEDS: Acetaminophen/HYDROcodone 325-5 MG Tab PO PRN ×3 (01:07→19:23)
[2017-04-08] MEDS: Pantoprazole 40 MG Vial IVPUSH SCH ×2 (01:09→13:43)
[2017-04-08] MEDS: Sodium Chloride 0.9% 1,000 ML IV SCH ×2 (07:23→10:00)
[2017-04-08] MEDS: Levofloxacin/Dextrose 5%-Water 750 MG in Premix Bag 1 BAG IV SCH (09:39)
[2017-04-08] MEDS: Tamsulosin 0.4 MG Cap.ER PO SCH (09:45)
[2017-04-08] MEDS ORDERED: Ketorolac 30 MG/ML SDV IVPUSH PRN (10:04)
[2017-04-08] MEDS: Ketorolac 30 MG/ML SDV IVPUSH SCH ×2 (11:07→19:22)
--- NOTE | 2017-04-08 12:59 | US ---
Limited abdominal ultrasound: Multiple real-time images of the upper right abdomen were obtained. Comparison: Previous abdominal ultrasound of 04/05/17. Heterogeneous mass identified within the right upper abdomen measuring about 11.8 cm in greatest dimensions. This appears slightly increased in size from prior study and most likely represents a hemorrhagic pseudocyst. Diminished free fluid within the abdomen from prior exam. Liver shows no discrete abnormality. Gallbladder shows no gallstones. No biliary duct dilatation is seen. Cyst noted within the right kidney. Pancreas obscured from bowel gas. Inferior vena cava is patent. Impression: 1. 11.8 cm heterogeneous mass within the right upper abdomen increased in size from prior exam most likely representing hemorrhagic pseudocyst. 2. Decreased free fluid within the abdomen from prior exam. 3. Incidental small right renal cyst. Diagnostic code #3
--- NOTE | 2017-04-08 13:15 | PCM.PN ---
- General Info Date of Service: 04/08/17 Functional Status: Reports: Pain Controlled, Tolerating Diet (started ice chips) - Review of Systems General: Reports: No Symptoms HEENT: Reports: No Symptoms Pulmonary: Reports: No Symptoms Cardiovascular: Reports: No Symptoms Gastrointestinal: Reports: No Symptoms Genitourinary: Reports: No Symptoms Musculoskeletal: Reports: No Symptoms Skin: Reports: No Symptoms Neurological: Reports: No Symptoms Psychiatric: Reports: No Symptoms - Patient Data Vitals - Most Recent: Last Vital Signs Temp 36.7 C 04/08/17 12:00 Pulse 92 04/08/17 12:00 Resp 20 04/08/17 12:00 BP 124/85 04/08/17 12:00 Pulse Ox 100 04/08/17 12:00 Weight - Most Recent: 80.286 kg I&O - Last 24 Hours: Intake & Output 04/07/17 04/08/17 04/08/17 22:59 06:59 14:59 Intake Total 1325 1383 60 Output Total 200 200 250 Balance 1125 1183 -190 Lab Results Last 24 Hours: Laboratory Results - last 24 hr 04/08/17 04/08/17 04/08/17 Range/Units 05:44 05:44 05:44 WBC 11.39 H (4.23-9.07) K/mm3 RBC 4.45 L (4.63-6.08) M/mm3 Hgb 12.3 L (13.7-17.5) gm/L Hct 38.0 L (40.1-51.0) % MCV 85.4 (79.0-92.2) fl MCH 27.6 (25.7-32.2) pg MCHC 32.4 (32.2-35.5) g/dl RDW Std Deviation 56.3 H (35.1-43.9) fL Plt Count 172 (163-337) K/mm3 MPV 10.9 (9.4-12.3) fl Neut % (Auto) 82.9 H (34.0-67.9) % Lymph % (Auto) 7.0 L (21.8-53.1) % [place] % (Auto) 8.0 (5.3-12.2) % Eos % (Auto) 1.7 (0.8-7.0) Baso % (Auto) 0.1 (0.1-1.2) % Neut # (Auto) 9.45 H (1.78-5.38) K/mm3 Lymph # (Auto) 0.80 L (1.32-3.57) K/mm3 [place] # (Auto) 0.91 H (0.30-0.82) K/mm3 Eos # (Auto) 0.19 (0.04-0.54) K/mm3 Baso # (Auto) 0.01 (0.01-0.08) K/mm3 Manual Slide Review Abnormal smear Sodium 137 (136-145) mEq/L Potassium 3.6 (3.5-5.1) mEq/L Chloride 103 (98-107) mEq/L Carbon Dioxide 25 (21-32) mEq/L Anion Gap 12.6 (5-15) BUN 13 (7-18) mg/dL Creatinine 1.0 (0.7-1.3) mg/dL Est Cr Clr Drug Dosing 100.40 mL/min Estimated GFR (MDRD) > 60 (>60) mL/min BUN/Creatinine Ratio 13.0 L (14-18) Glucose 74 (74-106) mg/dL Calcium 8.4 L (8.5-10.1) mg/dL Magnesium 1.6 L (1.8-2.4) mg/dl C-Reactive Protein 36.2 H* (<1.0) mg/dL Lipase 2058 H (73-393) U/L Med Orders - Current: Current Medications Hydrocodone Bitart/Acetaminophen ([place] 325-5 Mg) 1 tab PO Q6H PRN PRN Reason: Pain (moderate 4-6) Last Admin: 04/08/17 09:42 Dose: 1 tab Hydromorphone HCl (Dilaudid) 1 mg IVPUSH Q3H PRN PRN Reason: Pain (moderate 4-6) Last Admin: 04/07/17 15:47 Dose: 1 mg Sodium Chloride (Normal Saline) 1,000 mls @ 200 mls/hr IV ASDIRECTED [facility] Last Admin: 04/08/17 10:00 Dose: 100 mls/hr Levofloxacin/Dextrose 750 mg/ (Premix) 150 mls @ 100 mls/hr IV Q24H [facility] Last Admin: 04/08/17 09:39 Dose: 100 mls/hr Ketorolac Tromethamine (Toradol) 30 mg IVPUSH Q8H [facility] Stop: 04/09/17 03:01 Last Admin: 04/08/17 11:07 Dose: 30 mg Ondansetron HCl (Zofran) 4 mg IVPUSH Q8H PRN PRN Reason: Nausea/Vomiting Last Admin: 04/06/17 04:54 Dose: 4 mg Pantoprazole Sodium (Protonix Iv) 40 mg IVPUSH Q12H [facility] Last Admin: 04/08/17 01:09 Dose: 40 mg Prochlorperazine Edisylate (Compazine) 10 mg IVPUSH Q6H PRN PRN Reason: Nausea/Vomiting Sodium Chloride (Saline Flush) 10 ml FLUSH ASDIRECTED PRN PRN Reason: Keep Vein Open Last Admin: 04/06/17 20:11 Dose: 10 ml Tamsulosin HCl (Flomax) 0.4 mg PO DAILY [facility]AN Last Admin: 04/08/17 09:45 Dose: 0.4 mg Trazodone HCl (Trazodone) 50 mg PO BEDTIME PRN PRN Reason: Sleep Discontinued Medications Enoxaparin Sodium (Lovenox) 40 mg SUBCUT DAILY ONE Stop: 04/05/17 13:46 Last Admin: 04/05/17 14:23 Dose: 40 mg Hydromorphone HCl (Dilaudid) 1 mg IVPUSH ONETIME ONE Stop: 04/05/17 10:37 Last Admin: 04/05/17 10:41 Dose: 1 mg Hydromorphone HCl (Dilaudid) 0.5 mg IVPUSH ONETIME ONE Stop: 04/05/17 11:13 Last Admin: 04/05/17 11:17 Dose: 0.5 mg Hydromorphone HCl (Dilaudid) 1 mg IVPUSH ONETIME ONE Stop: 04/05/17 12:42 Last Admin: 04/05/17 12:47 Dose: 1 mg Sodium Chloride (Normal Saline) 1,000 mls @ 1,000 mls/hr IV .BOLUS STA Stop: 04/05/17 11:33 Last Admin: 04/05/17 10:42 Dose: 1,000 mls/hr Sodium Chloride (Normal Saline) 1,000 mls @ 999 mls/hr IV ONETIME ONE Stop: 04/05/17 12:37 Last Admin: 04/05/17 11:40 Dose: 999 mls/hr Sodium Chloride (Normal Saline) 1,000 mls @ 200 mls/hr IV ASDIRECTED [facility] Stop: 04/05/17 17:59 Last Admin: 04/05/17 16:48 Dose: Not Given Magnesium Sulfate 2 gm/ Premix 50 mls @ 25 mls/hr IV ONETIME ONE Stop: 04/06/17 14:59 Last Admin: 04/06/17 13:10 Dose: 25 mls/hr Magnesium Sulfate 2 gm/ Premix 50 mls @ 25 mls/hr IV ONETIME ONE Stop: 04/07/17 16:59 Last Admin: 04/07/17 14:27 Dose: 25 mls/hr Ketorolac Tromethamine (Toradol) 60 mg IVPUSH ONETIME ONE Stop: 04/05/17 13:29 Last Admin: 04/05/17 13:38 Dose: 60 mg Ketorolac Tromethamine (Toradol) 30 mg IVPUSH Q6H [facility] Stop: 04/07/17 13:31 Last Admin: 04/07/17 13:40 Dose: 30 mg Ketorolac Tromethamine (Toradol) 30 mg IVPUSH Q8H PRN PRN Reason: Abdominal Pain Multivitamins/Minerals (M.V.I. Adult) 10 ml IV DAILY [facility] Ondansetron HCl (Zofran) 4 mg IVPUSH ONETIME ONE Stop: 04/05/17 10:35 Last Admin: 04/05/17 10:41 Dose: 4 mg Tamsulosin HCl (Flomax) 0.4 mg PO DAILY [facility] Last Admin: 04/08/17 01:10 Dose: Not Given - Exam Quality Assessment: DVT Prophylaxis General: Alert, Oriented, Cooperative, No Acute Distress HEENT: Pupils Equal, Pupils Reactive, EOMI, Mucous Membr. Moist/[place] Neck: Supple, Trachea Midline, No JVD Lungs: Clear to Auscultation, Normal Respiratory Effort Cardiovascular: Regular Rate, Regular Rhythm GI/Abdominal Exam: Normal Bowel Sounds, Soft, No Organomegaly, No Distention, Tender (Male) Exam: Deferred Back Exam: Normal Inspection Extremities: Normal Inspection Skin: Warm Neurological: No New Focal Deficit, Normal Gait, Normal Speech Psy/Mental Status: Alert, Normal Affect, Normal Mood - Problem List & Annotations (1) Alcohol dependence SNOMED Code(s): 39150792, 357717294 Code(s): F10.20 - ALCOHOL DEPENDENCE, UNCOMPLICATED Status: Acute Current Visit: Yes (2) Pancreatitis, alcoholic, acute SNOMED Code(s): 147856790 Code(s): K85.20 - ALCOHOL INDUCED ACUTE PANCREATITIS WITHOUT NECROSIS OR INFCT Status: Acute Current Visit: Yes Qualifiers: Acute pancreatitis complication: no infection or necrosis Qualified Code(s) : K85.20 - Alcohol induced acute pancreatitis without necrosis or infection - Problem List Review Problem List Initiated/Reviewed/Updated: Yes - My Orders Last 24 Hours: My Active Orders 04/07/17 13:30 Tamsulosin [Flomax] 0.4 mg PO DAILY 04/07/17 19:28 Acetaminophen/HYDROcodone [[place] 325-5 MG] 1 tab PO Q6H PRN 04/08/17 09:00 Consult to Dietary [Consult to [employer]] [CONS] Routine 04/08/17 09:10 Communication Order [RC] ASDIRECTED 04/08/17 11:00 Ketorolac [Toradol] 30 mg IVPUSH Q8H 04/08/17 13:09 URINALYSIS W/MICROSCOPIC [UA W/MICROSCOPIC] [URIN] Routine 04/09/17 05:00 CBC WITH AUTO DIFF [HEME] DAILY CRP [C-REACTIVE PROTEIN] [CHEM] DAILY LIPASE [CHEM] DAILY MAGNESIUM [CHEM] DAILY 04/09/17 05:40 BMP [BASIC METABOLIC PANEL,BMP] [CHEM] DAILY 04/10/17 05:00 CRP [C-REACTIVE PROTEIN] [CHEM] DAILY LIPASE [CHEM] DAILY 04/10/17 05:40 BMP [BASIC METABOLIC PANEL,BMP] [CHEM] DAILY - Plan Plan:: Impression: Acute on chronic pancreatitis/pancreatic pseudocyst on US Abdominal pain, associated with fatty food; elevated lipase after clear liquids History of alcohol dependence Last ETOH reportedly 5-7 days ago Tobacco dependence, Snuff Plan: Repeart abd US Clear liquids--stopped, now NPO Pain mgt IVF-->D5 0.9NS CIWA protocol SZ precautions Gen Surg, will follow DVT/GI prophylaxis
[2017-04-08] MEDS ORDERED: Sodium Chloride 0.9% 1,000 ML IV SCH (16:05)
[2017-04-08] MEDS: Dextrose 5%-0.9% NaCl 1,000 ML IV SCH (20:32)
[2017-04-09] MEDS: Pantoprazole 40 MG Vial IVPUSH SCH ×2 (02:00→13:38)
[2017-04-09] MEDS: Acetaminophen/HYDROcodone 325-5 MG Tab PO PRN ×3 (02:00→20:18)
[2017-04-09] MEDS: Ketorolac 30 MG/ML SDV IVPUSH SCH (02:00)
[2017-04-09] MEDS: Dextrose 5%-0.9% NaCl 1,000 ML IV SCH ×2 (06:31→18:49)
[2017-04-09] MEDS: Tamsulosin 0.4 MG Cap.ER PO SCH (08:05)
[2017-04-09] MEDS ORDERED: Magnesium Sulfate/Water 4 GM in Premix Bag 1 BAG IV ONE (09:00)
[2017-04-09] MEDS: Sodium Chloride 0.9% 1,000 ML IV SCH ×2 (09:34→10:34)
[2017-04-09] MEDS: Potassium Chloride 10% 20 MEQ/15 ML Soln 30 ML UD Cup PO SCH ×3 (09:35→20:16)
[2017-04-09] MEDS: Levofloxacin/Dextrose 5%-Water 750 MG in Premix Bag 1 BAG IV SCH (12:00)
--- NOTE | 2017-04-09 12:36 | PCM.PN ---
- General Info Date of Service: 04/09/17 Functional Status: Reports: Pain Controlled, Tolerating Diet, Ambulating, Urinating - Review of Systems General: Reports: No Symptoms HEENT: Reports: No Symptoms Pulmonary: Reports: No Symptoms Cardiovascular: Reports: No Symptoms Gastrointestinal: Reports: Abdominal Pain (mild) Genitourinary: Reports: No Symptoms Musculoskeletal: Reports: No Symptoms Skin: Reports: No Symptoms Neurological: Reports: No Symptoms Psychiatric: Reports: No Symptoms - Patient Data Vitals - Most Recent: Last Vital Signs Temp 37.1 C 04/09/17 07:54 Pulse 88 04/08/17 16:00 Resp 16 04/09/17 07:54 BP 124/83 04/09/17 07:54 Pulse Ox 94 L 04/09/17 07:54 Weight - Most Recent: 82.508 kg I&O - Last 24 Hours: Intake & Output 04/08/17 04/09/17 04/09/17 22:59 06:59 14:59 Intake Total 1884 949 Output Total 150 150 350 Balance 1734 799 -350 Lab Results Last 24 Hours: Laboratory Results - last 24 hr 04/08/17 04/09/17 04/09/17 Range/Units 20:40 06:25 06:25 WBC 7.93 (4.23-9.07) K/mm3 RBC 4.17 L (4.63-6.08) M/mm3 Hgb 11.8 L (13.7-17.5) gm/L Hct 35.2 L (40.1-51.0) % MCV 84.4 (79.0-92.2) fl MCH 28.3 (25.7-32.2) pg MCHC 33.5 (32.2-35.5) g/dl RDW Std Deviation 53.9 H (35.1-43.9) fL Plt Count 161 L (163-337) K/mm3 MPV 10.4 (9.4-12.3) fl Neut % (Auto) 76.0 H (34.0-67.9) % Lymph % (Auto) 9.6 L (21.8-53.1) % [place] % (Auto) 10.8 (5.3-12.2) % Eos % (Auto) 3.2 (0.8-7.0) Baso % (Auto) 0.1 (0.1-1.2) % Neut # (Auto) 6.03 H (1.78-5.38) K/mm3 Lymph # (Auto) 0.76 L (1.32-3.57) K/mm3 [place] # (Auto) 0.86 H (0.30-0.82) K/mm3 Eos # (Auto) 0.25 (0.04-0.54) K/mm3 Baso # (Auto) 0.01 (0.01-0.08) K/mm3 Manual Slide Review Abnormal smear Sodium (136-145) mEq/L Potassium (3.5-5.1) mEq/L Chloride (98-107) mEq/L Carbon Dioxide (21-32) mEq/L Anion Gap (5-15) BUN (7-18) mg/dL Creatinine (0.7-1.3) mg/dL Est Cr Clr Drug Dosing mL/min Estimated GFR (MDRD) (>60) mL/min BUN/Creatinine Ratio (14-18) Glucose (74-106) mg/dL Calcium (8.5-10.1) mg/dL Magnesium 1.4 L (1.8-2.4) mg/dl C-Reactive Protein 31.7 H* (<1.0) mg/dL Lipase 1285 H (73-393) U/L Urine Color [place] H (Yellow) Urine Appearance Clear (Clear) Urine pH 6.0 (5.0-8.0) Ur Specific [place] > or = 1.030 (1.005-1.030) Urine Protein 2+ H (Negative) Urine Glucose (UA) Negative (Negative) Urine Ketones 3+ H (Negative) Urine Occult Blood Negative (Negative) Urine Nitrite Positive H (Negative) Urine Bilirubin 3+ H (Negative) Urine Urobilinogen 1.0 (0.2-1.0) Ur Leukocyte Esterase Negative (Negative) Urine RBC 0-5 (0-5) /hpf Urine WBC 5-10 H (0-5) /hpf Ur Epithelial Cells 0-5 (0-5) /hpf Urine Bacteria Moderate H (FEW) /hpf Hyaline Casts 0-5 (0-5) /lpf Urine Mucus Many H (FEW) /hpf //17 Range/Units 06:25 WBC (4.23-9.07) K/mm3 RBC (4.63-6.08) M/mm3 Hgb (13.7-17.5) gm/L Hct (40.1-51.0) % MCV (79.0-92.2) fl MCH (25.7-32.2) pg MCHC (32.2-35.5) g/dl RDW Std Deviation (35.1-43.9) fL Plt Count (163-337) K/mm3 MPV (9.4-12.3) fl Neut % (Auto) (34.0-67.9) % Lymph % (Auto) (21.8-53.1) % [place] % (Auto) (5.3-12.2) % Eos % (Auto) (0.8-7.0) Baso % (Auto) (0.1-1.2) % Neut # (Auto) (1.78-5.38) K/mm3 Lymph # (Auto) (1.32-3.57) K/mm3 [place] # (Auto) (0.30-0.82) K/mm3 Eos # (Auto) (0.04-0.54) K/mm3 Baso # (Auto) (0.01-0.08) K/mm3 Manual Slide Review Sodium 139 (136-145) mEq/L Potassium 3.2 L (3.5-5.1) mEq/L Chloride 106 (98-107) mEq/L Carbon Dioxide 26 (21-32) mEq/L Anion Gap 10.2 (5-15) BUN 11 (7-18) mg/dL Creatinine 0.9 (0.7-1.3) mg/dL Est Cr Clr Drug Dosing 111.56 mL/min Estimated GFR (MDRD) > 60 (>60) mL/min BUN/Creatinine Ratio 12.2 L (14-18) Glucose 105 (74-106) mg/dL Calcium 8.1 L (8.5-10.1) mg/dL Magnesium (1.8-2.4) mg/dl C-Reactive Protein (<1.0) mg/dL Lipase (73-393) U/L Urine Color (Yellow) Urine Appearance (Clear) Urine pH (5.0-8.0) Ur Specific [place] (1.005-1.030) Urine Protein (Negative) Urine Glucose (UA) (Negative) Urine Ketones (Negative) Urine Occult Blood (Negative) Urine Nitrite (Negative) Urine Bilirubin (Negative) Urine Urobilinogen (0.2-1.0) Ur Leukocyte Esterase (Negative) Urine RBC (0-5) /hpf Urine WBC (0-5) /hpf Ur Epithelial Cells (0-5) /hpf Urine Bacteria (FEW) /hpf Hyaline Casts (0-5) /lpf Urine Mucus (FEW) /hpf Med Orders - Current: Current Medications Hydrocodone Bitart/Acetaminophen ([place] 325-5 Mg) 1 tab PO Q6H PRN PRN Reason: Pain (moderate 4-6) Last Admin: 04/09/17 02:00 Dose: 1 tab Hydromorphone HCl (Dilaudid) 1 mg IVPUSH Q3H PRN PRN Reason: Pain (moderate 4-6) Last Admin: 04/07/17 15:47 Dose: 1 mg Levofloxacin/Dextrose 750 mg/ (Premix) 150 mls @ 100 mls/hr IV Q24H [facility] Last Admin: 04/09/17 12:00 Dose: 100 mls/hr Dextrose/Sodium Chloride (Dextrose 5%-Normal Saline) 1,000 mls @ 100 mls/hr IV ASDIRECTED [facility] Last Infusion: 04/09/17 11:45 Dose: 100 mls/hr Ondansetron HCl (Zofran) 4 mg IVPUSH Q8H PRN PRN Reason: Nausea/Vomiting Last Admin: 04/06/17 04:54 Dose: 4 mg Pantoprazole Sodium (Protonix Iv) 40 mg IVPUSH Q12H [facility] Last Admin: 04/09/17 02:00 Dose: 40 mg Potassium Chloride (Potassium Chloride) 60 meq PO TID [facility]JAN Stop: 04/09/17 21:01 Last Admin: 04/09/17 09:35 Dose: 60 meq Prochlorperazine Edisylate (Compazine) 10 mg IVPUSH Q6H PRN PRN Reason: Nausea/Vomiting Sodium Chloride (Saline Flush) 10 ml FLUSH ASDIRECTED PRN PRN Reason: Keep Vein Open Last Admin: 04/06/17 20:11 Dose: 10 ml Tamsulosin HCl (Flomax) 0.4 mg PO DAILY [facility] Last Admin: 04/09/17 08:05 Dose: 0.4 mg Trazodone HCl (Trazodone) 50 mg PO BEDTIME PRN PRN Reason: Sleep Discontinued Medications Enoxaparin Sodium (Lovenox) 40 mg SUBCUT DAILY ONE Stop: 04/05/17 13:46 Last Admin: 04/05/17 14:23 Dose: 40 mg Hydromorphone HCl (Dilaudid) 1 mg IVPUSH ONETIME ONE Stop: 04/05/17 10:37 Last Admin: 04/05/17 10:41 Dose: 1 mg Hydromorphone HCl (Dilaudid) 0.5 mg IVPUSH ONETIME ONE Stop: 04/05/17 11:13 Last Admin: 04/05/17 11:17 Dose: 0.5 mg Hydromorphone HCl (Dilaudid) 1 mg IVPUSH ONETIME ONE Stop: 04/05/17 12:42 Last Admin: 04/05/17 12:47 Dose: 1 mg Sodium Chloride (Normal Saline) 1,000 mls @ 1,000 mls/hr IV .BOLUS STA Stop: 04/05/17 11:33 Last Admin: 04/05/17 10:42 Dose: 1,000 mls/hr Sodium Chloride (Normal Saline) 1,000 mls @ 999 mls/hr IV ONETIME ONE Stop: 04/05/17 12:37 Last Admin: 04/05/17 11:40 Dose: 999 mls/hr Sodium Chloride (Normal Saline) 1,000 mls @ 200 mls/hr IV ASDIRECTED [facility] Stop: 04/05/17 17:59 Last Admin: 04/05/17 16:48 Dose: Not Given Sodium Chloride (Normal Saline) 1,000 mls @ 200 mls/hr IV ASDIRECTED [facility] Last Admin: 04/08/17 10:00 Dose: 100 mls/hr Magnesium Sulfate 2 gm/ Premix 50 mls @ 25 mls/hr IV ONETIME ONE Stop: 04/06/17 14:59 Last Admin: 04/06/17 13:10 Dose: 25 mls/hr Magnesium Sulfate 2 gm/ Premix 50 mls @ 25 mls/hr IV ONETIME ONE Stop: 04/07/17 16:59 Last Admin: 04/07/17 14:27 Dose: 25 mls/hr Sodium Chloride (Normal Saline) 1,000 mls @ 100 mls/hr IV ASDIRECTED [facility] Magnesium Sulfate 4 gm/ Premix 100 mls @ 50 mls/hr IV ONETIME ONE Stop: 04/09/17 10:59 Last Admin: 04/09/17 09:34 Dose: 50 mls/hr Sodium Chloride (Normal Saline) 1,000 mls @ 999 mls/hr IV Q1H [facility] Stop: 04/09/17 10:59 Last Admin: 04/09/17 10:34 Dose: 999 mls/hr Ketorolac Tromethamine (Toradol) 60 mg IVPUSH ONETIME ONE Stop: 04/05/17 13:29 Last Admin: 04/05/17 13:38 Dose: 60 mg Ketorolac Tromethamine (Toradol) 30 mg IVPUSH Q6H [facility] Stop: 04/07/17 13:31 Last Admin: 04/07/17 13:40 Dose: 30 mg Ketorolac Tromethamine (Toradol) 30 mg IVPUSH Q8H PRN PRN Reason: Abdominal Pain Ketorolac Tromethamine (Toradol) 30 mg IVPUSH Q8H [facility] Stop: 04/09/17 03:01 Last Admin: 04/09/17 02:00 Dose: 30 mg Multivitamins/Minerals (M.V.I. Adult) 10 ml IV DAILY [facility] Ondansetron HCl (Zofran) 4 mg IVPUSH ONETIME ONE Stop: 04/05/17 10:35 Last Admin: 04/05/17 10:41 Dose: 4 mg Tamsulosin HCl (Flomax) 0.4 mg PO DAILY [facility] Last Admin: 04/08/17 01:10 Dose: Not Given - Exam Quality Assessment: DVT Prophylaxis General: Alert, Oriented, Cooperative, No Acute Distress HEENT: Pupils Equal, Pupils Reactive, EOMI, Mucous Membr. Moist/[place] Neck: Supple, Trachea Midline, No JVD Lungs: Normal Respiratory Effort Cardiovascular: Regular Rate, Regular Rhythm GI/Abdominal Exam: Normal Bowel Sounds, Soft, No Organomegaly, No Distention, Tender (upper quadrant) (Male) Exam: Deferred Back Exam: Normal Inspection Extremities: Normal Inspection, No Pedal Edema (trace) Skin: Warm Neurological: No New Focal Deficit, Normal Gait, Normal Speech Psy/Mental Status: Alert, Normal Affect, Normal Mood - Problem List & Annotations (1) Alcohol dependence SNOMED Code(s): 10266305, 473835571 Code(s): F10.20 - ALCOHOL DEPENDENCE, UNCOMPLICATED Status: Inactive Current Visit: Yes (2) Pancreatitis, alcoholic, acute SNOMED Code(s): 960573330 Code(s): K85.20 - ALCOHOL INDUCED ACUTE PANCREATITIS WITHOUT NECROSIS OR INFCT Status: Ruled-out Current Visit: Yes Qualifiers: Acute pancreatitis complication: no infection or necrosis Qualified Code(s) : K85.20 - Alcohol induced acute pancreatitis without necrosis or infection (3) Pancreatitis, acute SNOMED Code(s): 443474599 Code(s): K85.90 - ACUTE PANCREATITIS WITHOUT NECROSIS OR INFECTION, UNSP Status: Acute Current Visit: Yes (4) Pseudocyst of pancreas SNOMED Code(s): 669238540 Code(s): K86.3 - PSEUDOCYST OF PANCREAS Status: Acute Current Visit: Yes - Problem List Review Problem List Initiated/Reviewed/Updated: Yes - My Orders Last 24 Hours: My Active Orders 04/08/17 17:00 Communication Order [RC] ASDIRECTED 04/08/17 20:30 Dextrose 5%-0.9% NaCl [Dextrose 5%-Normal Saline] 1,000 ml IV ASDIRECTED 04/09/17 08:57 CULTURE URINE [RM] Routine 04/09/17 09:00 Potassium Chloride 60 meq PO TID 04/09/17 12:11 Patient Status Manage Transfer [TRANSFER] Routine Cardiac Monitoring [RC] . DIRECTED 04/10/17 05:00 CRP [C-REACTIVE PROTEIN] [CHEM] DAILY LIPASE [CHEM] DAILY 04/10/17 05:40 BMP [BASIC METABOLIC PANEL,BMP] [CHEM] DAILY - Plan Plan:: Impression: Acute on chronic pancreatitis/pancreatic pseudocyst on US Abdominal pain, associated with fatty food; elevated lipase after clear liquids History of alcohol dependence Last ETOH reportedly 5-7 days ago Tobacco dependence, Snuff Plan: Repeat abd US---completed Change diet to clear-->full liquids Pain mgt IVF-->D5 0.9NS CIWA protocol SZ precautions Gen Surg, will follow DVT/GI prophylaxis
[2017-04-09] MEDS ORDERED: Furosemide 20 MG/2 ML VIAL IVPUSH ONE (19:53)
[2017-04-09] MEDS: HYDROmorphone 1 MG/ML Syringe IVPUSH PRN (22:14)
[2017-04-10] MEDS: Pantoprazole 40 MG Vial IVPUSH SCH ×2 (01:18→13:48)
[2017-04-10] MEDS: Tamsulosin 0.4 MG Cap.ER PO SCH (08:41)
[2017-04-10] MEDS: Levofloxacin/Dextrose 5%-Water 750 MG in Premix Bag 1 BAG IV SCH (08:42)
[2017-04-10] MEDS: Acetaminophen/HYDROcodone 325-5 MG Tab PO PRN ×2 (08:42→16:42)
[2017-04-10] MEDS: HYDROmorphone 1 MG/ML Syringe IVPUSH PRN (10:49)
[2017-04-10] MEDS: Dextrose 5%-0.9% NaCl 1,000 ML IV SCH (14:12)
--- NOTE | 2017-04-10 16:56 | PCM.PN ---
- General Info Date of Service: 04/10/17 Functional Status: Reports: Pain Controlled, Tolerating Diet (full-->clears), Ambulating, Urinating - Review of Systems General: Reports: No Symptoms HEENT: Reports: No Symptoms Pulmonary: Reports: No Symptoms Cardiovascular: Reports: No Symptoms Gastrointestinal: Reports: No Symptoms Genitourinary: Reports: No Symptoms Musculoskeletal: Reports: No Symptoms Skin: Reports: No Symptoms Neurological: Reports: No Symptoms Psychiatric: Reports: No Symptoms - Patient Data Vitals - Most Recent: Last Vital Signs Temp 37.2 C 04/10/17 16:00 Pulse 84 04/10/17 16:00 Resp 16 04/10/17 16:00 BP 122/95 H 04/10/17 16:00 Pulse Ox 99 04/10/17 16:00 Weight - Most Recent: 82.639 kg I&O - Last 24 Hours: Intake & Output 04/10/17 04/10/17 04/10/17 06:59 14:59 22:59 Intake Total 1090 510 Output Total 3075 Balance -1985 510 Lab Results Last 24 Hours: Laboratory Results - last 24 hr 04/07/17 04/10/17 04/10/17 Range/Units 05:57 06:36 06:36 Sodium 138 140 (136-145) mEq/L Potassium 4.3 3.8 (3.5-5.1) mEq/L Chloride 103 106 (98-107) mEq/L Carbon Dioxide 30 28 (21-32) mEq/L Anion Gap 9.3 9.8 (5-15) BUN 15 5 L (7-18) mg/dL Creatinine 1.0 0.9 (0.7-1.3) mg/dL Est Cr Clr Drug Dosing 100.40 111.56 mL/min Estimated GFR (MDRD) > 60 > 60 (>60) mL/min BUN/Creatinine Ratio 15.0 5.6 L (14-18) Glucose 88 81 (74-106) mg/dL Calcium 8.2 L 8.3 L (8.5-10.1) mg/dL Magnesium 1.6 L (1.8-2.4) mg/dl Total Bilirubin 1.0 (0.2-1.0) mg/dL AST 15 (15-37) U/L ALT 23 (16-63) U/L Alkaline Phosphatase 51 (46-116) U/L C-Reactive Protein 31.5 H* 21.8 H* (<1.0) mg/dL Total Protein 5.5 L (6.4-8.2) g/dl Albumin 2.2 L (3.4-5.0) g/dl Globulin 3.3 gm/dL Albumin/Globulin Ratio 0.7 L (1-2) Lipase 1994 H 497 H (73-393) U/L Osmany Results Last 24 Hours: Microbiology 04/08/17 20:40 Urine Culture - Preliminary Urine, Clean Catch NO GROWTH AFTER 1 DAY Med Orders - Current: Current Medications Hydrocodone Bitart/Acetaminophen (Devol 325-5 Mg) 1 tab PO Q6H PRN PRN Reason: Pain (moderate 4-6) Last Admin: 04/10/17 16:42 Dose: 1 tab Hydromorphone HCl (Dilaudid) 1 mg IVPUSH Q3H PRN PRN Reason: Pain (moderate 4-6) Last Admin: 04/10/17 10:49 Dose: 1 mg Levofloxacin/Dextrose 750 mg/ (Premix) 150 mls @ 100 mls/hr IV Q24H [facility] Last Admin: 04/10/17 08:42 Dose: 100 mls/hr Dextrose/Sodium Chloride (Dextrose 5%-Normal Saline) 1,000 mls @ 50 mls/hr IV ASDIRECTED [facility] Last Admin: 04/10/17 14:12 Dose: 50 mls/hr Ondansetron HCl (Zofran) 4 mg IVPUSH Q8H PRN PRN Reason: Nausea/Vomiting Last Admin: 04/06/17 04:54 Dose: 4 mg Pantoprazole Sodium (Protonix Iv) 40 mg IVPUSH Q12H [facility] Last Admin: 04/10/17 13:48 Dose: 40 mg Prochlorperazine Edisylate (Compazine) 10 mg IVPUSH Q6H PRN PRN Reason: Nausea/Vomiting Sodium Chloride (Saline Flush) 10 ml FLUSH ASDIRECTED PRN PRN Reason: Keep Vein Open Last Admin: 04/06/17 20:11 Dose: 10 ml Tamsulosin HCl (Flomax) 0.4 mg PO DAILY [facility] Last Admin: 04/10/17 08:41 Dose: 0.4 mg Trazodone HCl (Trazodone) 50 mg PO BEDTIME PRN PRN Reason: Sleep Discontinued Medications Enoxaparin Sodium (Lovenox) 40 mg SUBCUT DAILY ONE Stop: 04/05/17 13:46 Last Admin: 04/05/17 14:23 Dose: 40 mg Furosemide (Lasix) 10 mg IVPUSH NOW ONE Stop: 04/09/17 19:54 Last Admin: 04/09/17 20:16 Dose: 10 mg Hydromorphone HCl (Dilaudid) 1 mg IVPUSH ONETIME ONE Stop: 04/05/17 10:37 Last Admin: 04/05/17 10:41 Dose: 1 mg Hydromorphone HCl (Dilaudid) 0.5 mg IVPUSH ONETIME ONE Stop: 04/05/17 11:13 Last Admin: 04/05/17 11:17 Dose: 0.5 mg Hydromorphone HCl (Dilaudid) 1 mg IVPUSH ONETIME ONE Stop: 04/05/17 12:42 Last Admin: 04/05/17 12:47 Dose: 1 mg Sodium Chloride (Normal Saline) 1,000 mls @ 1,000 mls/hr IV .BOLUS STA Stop: 04/05/17 11:33 Last Admin: 04/05/17 10:42 Dose: 1,000 mls/hr Sodium Chloride (Normal Saline) 1,000 mls @ 999 mls/hr IV ONETIME ONE Stop: 04/05/17 12:37 Last Admin: 04/05/17 11:40 Dose: 999 mls/hr Sodium Chloride (Normal Saline) 1,000 mls @ 200 mls/hr IV ASDIRECTED [facility] Stop: 04/05/17 17:59 Last Admin: 04/05/17 16:48 Dose: Not Given Sodium Chloride (Normal Saline) 1,000 mls @ 200 mls/hr IV ASDIRECTED [facility] Last Admin: 04/08/17 10:00 Dose: 100 mls/hr Magnesium Sulfate 2 gm/ Premix 50 mls @ 25 mls/hr IV ONETIME ONE Stop: 04/06/17 14:59 Last Admin: 04/06/17 13:10 Dose: 25 mls/hr Magnesium Sulfate 2 gm/ Premix 50 mls @ 25 mls/hr IV ONETIME ONE Stop: 04/07/17 16:59 Last Admin: 04/07/17 14:27 Dose: 25 mls/hr Sodium Chloride (Normal Saline) 1,000 mls @ 100 mls/hr IV ASDIRECTED [facility] Dextrose/Sodium Chloride (Dextrose 5%-Normal Saline) 1,000 mls @ 100 mls/hr IV ASDIRECTED [facility] Last Admin: 04/09/17 18:49 Dose: 100 mls/hr Magnesium Sulfate 4 gm/ Premix 100 mls @ 50 mls/hr IV ONETIME ONE Stop: 04/09/17 10:59 Last Admin: 04/09/17 09:34 Dose: 50 mls/hr Sodium Chloride (Normal Saline) 1,000 mls @ 999 mls/hr IV Q1H [facility] Stop: 04/09/17 10:59 Last Admin: 04/09/17 10:34 Dose: 999 mls/hr Ketorolac Tromethamine (Toradol) 60 mg IVPUSH ONETIME ONE Stop: 04/05/17 13:29 Last Admin: 04/05/17 13:38 Dose: 60 mg Ketorolac Tromethamine (Toradol) 30 mg IVPUSH Q6H [facility] Stop: 04/07/17 13:31 Last Admin: 04/07/17 13:40 Dose: 30 mg Ketorolac Tromethamine (Toradol) 30 mg IVPUSH Q8H PRN PRN Reason: Abdominal Pain Ketorolac Tromethamine (Toradol) 30 mg IVPUSH Q8H [facility] Stop: 04/09/17 03:01 Last Admin: 04/09/17 02:00 Dose: 30 mg Multivitamins/Minerals (M.V.I. Adult) 10 ml IV DAILY [facility] Ondansetron HCl (Zofran) 4 mg IVPUSH ONETIME ONE Stop: 04/05/17 10:35 Last Admin: 04/05/17 10:41 Dose: 4 mg Potassium Chloride (Potassium Chloride) 60 meq PO TID [facility] Stop: 04/09/17 21:01 Last Admin: 04/09/17 20:16 Dose: 60 meq Tamsulosin HCl (Flomax) 0.4 mg PO DAILY [facility] Last Admin: 04/08/17 01:10 Dose: Not Given - Exam Quality Assessment: DVT Prophylaxis General: Alert, Oriented, Cooperative, No Acute Distress HEENT: Pupils Equal, Pupils Reactive, EOMI Neck: Supple, Trachea Midline, No JVD Lungs: Clear to Auscultation, Normal Respiratory Effort Cardiovascular: Regular Rate, Regular Rhythm GI/Abdominal Exam: Normal Bowel Sounds, Soft, Non-Tender, No Organomegaly, No Distention (Male) Exam: Deferred Back Exam: Normal Inspection Extremities: Normal Inspection, Normal Range of Motion, Pedal Edema Skin: Warm Neurological: No New Focal Deficit, Normal Gait, Normal Speech Psy/Mental Status: Alert, Normal Affect, Normal Mood - Problem List & Annotations (1) Alcohol dependence SNOMED Code(s): 39692818, 821181466 Code(s): F10.20 - ALCOHOL DEPENDENCE, UNCOMPLICATED Status: Inactive Current Visit: Yes (2) Pancreatitis, alcoholic, acute SNOMED Code(s): 645270192 Code(s): K85.20 - ALCOHOL INDUCED ACUTE PANCREATITIS WITHOUT NECROSIS OR INFCT Status: Ruled-out Current Visit: Yes Qualifiers: Acute pancreatitis complication: no infection or necrosis Qualified Code(s) : K85.20 - Alcohol induced acute pancreatitis without necrosis or infection (3) Pancreatitis, acute SNOMED Code(s): 188779332 Code(s): K85.90 - ACUTE PANCREATITIS WITHOUT NECROSIS OR INFECTION, UNSP Status: Acute Current Visit: Yes (4) Pseudocyst of pancreas SNOMED Code(s): 046680887 Code(s): K86.3 - PSEUDOCYST OF PANCREAS Status: Acute Current Visit: Yes - Problem List Review Problem List Initiated/Reviewed/Updated: Yes - My Orders Last 24 Hours: My Active Orders 04/09/17 20:00 Dextrose 5%-0.9% NaCl [Dextrose 5%-Normal Saline] 1,000 ml IV ASDIRECTED - Plan Plan:: Impression: Acute on chronic pancreatitis/pancreatic pseudocyst on US Abdominal pain, associated with fatty food; elevated lipase after clear liquids History of alcohol dependence Last ETOH reportedly 5-7 days ago Tobacco dependence, Snuff Plan: Repeat abd US---completed Change diet to clear-->full liquids Pain mgt IVF-->D5 0.9NS, stopped; lasix 10 mg IVP CIWA protocol SZ precautions Gen Surg, will follow DVT/GI prophylaxis DC 24-48 hours LOS>96 hours, slow recovery
[2017-04-10] MEDS: Ibuprofen 600 MG Tab PO PRN (18:41)
[2017-04-11] MEDS: Pantoprazole 40 MG Vial IVPUSH SCH ×2 (03:09→14:46)
[2017-04-11] MEDS: Dextrose 5%-0.9% NaCl 1,000 ML IV SCH (09:28)
[2017-04-11] MEDS: Tamsulosin 0.4 MG Cap.ER PO SCH (09:30)
[2017-04-11] MEDS: Levofloxacin/Dextrose 5%-Water 750 MG in Premix Bag 1 BAG IV SCH (09:30)
[2017-04-11] MEDS: Ibuprofen 600 MG Tab PO PRN (09:36)
--- NOTE | 2017-04-11 11:10 | PCM.PN ---
- General Info Date of Service: 04/11/17 - Patient Data Vitals - Most Recent: Last Vital Signs Temp 36.9 C 04/11/17 08:04 Pulse 79 04/11/17 08:04 Resp 16 04/11/17 08:04 BP 125/77 04/11/17 08:04 Pulse Ox 95 04/11/17 08:04 Weight - Most Recent: 79.407 kg I&O - Last 24 Hours: Intake & Output 04/10/17 04/11/17 04/11/17 22:59 06:59 14:59 Intake Total 2943 950 Output Total 600 2400 Balance 2343 -1450 Lab Results Last 24 Hours: Laboratory Results - last 24 hr 04/07/17 04/11/17 04/11/17 Range/Units 05:57 10:10 10:10 WBC 7.95 (4.23-9.07) K/mm3 RBC 4.64 (4.63-6.08) M/mm3 Hgb 12.7 L (13.7-17.5) gm/L Hct 39.2 L (40.1-51.0) % MCV 84.5 (79.0-92.2) fl MCH 27.4 (25.7-32.2) pg MCHC 32.4 (32.2-35.5) g/dl RDW Std Deviation 55.6 H (35.1-43.9) fL Plt Count 235 (163-337) K/mm3 MPV 10.1 (9.4-12.3) fl Neut % (Auto) 81.6 H (34.0-67.9) % Lymph % (Auto) 8.2 L (21.8-53.1) % Blaine % (Auto) 8.4 (5.3-12.2) % Eos % (Auto) 1.6 (0.8-7.0) Baso % (Auto) 0.1 (0.1-1.2) % Neut # (Auto) 6.48 H (1.78-5.38) K/mm3 Lymph # (Auto) 0.65 L (1.32-3.57) K/mm3 Blaine # (Auto) 0.67 (0.30-0.82) K/mm3 Eos # (Auto) 0.13 (0.04-0.54) K/mm3 Baso # (Auto) 0.01 (0.01-0.08) K/mm3 Sodium 138 140 (136-145) mEq/L Potassium 4.3 4.1 (3.5-5.1) mEq/L Chloride 103 104 (98-107) mEq/L Carbon Dioxide 30 29 (21-32) mEq/L Anion Gap 9.3 11.1 (5-15) BUN 15 4 L (7-18) mg/dL Creatinine 1.0 1.0 (0.7-1.3) mg/dL Est Cr Clr Drug Dosing 100.40 100.40 mL/min Estimated GFR (MDRD) > 60 > 60 (>60) mL/min BUN/Creatinine Ratio 15.0 4.0 L (14-18) Glucose 88 97 (74-106) mg/dL Calcium 8.2 L 8.8 (8.5-10.1) mg/dL Magnesium 1.6 L 1.4 L (1.8-2.4) mg/dl Total Bilirubin 1.0 0.7 (0.2-1.0) mg/dL AST 15 20 (15-37) U/L ALT 23 30 (16-63) U/L Alkaline Phosphatase 51 72 (46-116) U/L C-Reactive Protein 31.5 H* 17.7 H* (<1.0) mg/dL Total Protein 5.5 L 6.2 L (6.4-8.2) g/dl Albumin 2.2 L 2.2 L (3.4-5.0) g/dl Globulin 3.3 4.0 gm/dL Albumin/Globulin Ratio 0.7 L 0.6 L (1-2) Lipase 1994 H (73-393) U/L 04/11/17 Range/Units 10:10 WBC (4.23-9.07) K/mm3 RBC (4.63-6.08) M/mm3 Hgb (13.7-17.5) gm/L Hct (40.1-51.0) % MCV (79.0-92.2) fl MCH (25.7-32.2) pg MCHC (32.2-35.5) g/dl RDW Std Deviation (35.1-43.9) fL Plt Count (163-337) K/mm3 MPV (9.4-12.3) fl Neut % (Auto) (34.0-67.9) % Lymph % (Auto) (21.8-53.1) % Blaine % (Auto) (5.3-12.2) % Eos % (Auto) (0.8-7.0) Baso % (Auto) (0.1-1.2) % Neut # (Auto) (1.78-5.38) K/mm3 Lymph # (Auto) (1.32-3.57) K/mm3 Blaine # (Auto) (0.30-0.82) K/mm3 Eos # (Auto) (0.04-0.54) K/mm3 Baso # (Auto) (0.01-0.08) K/mm3 Sodium (136-145) mEq/L Potassium (3.5-5.1) mEq/L Chloride (98-107) mEq/L Carbon Dioxide (21-32) mEq/L Anion Gap (5-15) BUN (7-18) mg/dL Creatinine (0.7-1.3) mg/dL Est Cr Clr Drug Dosing mL/min Estimated GFR (MDRD) (>60) mL/min BUN/Creatinine Ratio (14-18) Glucose (74-106) mg/dL Calcium (8.5-10.1) mg/dL Magnesium (1.8-2.4) mg/dl Total Bilirubin (0.2-1.0) mg/dL AST (15-37) U/L ALT (16-63) U/L Alkaline Phosphatase (46-116) U/L C-Reactive Protein (<1.0) mg/dL Total Protein (6.4-8.2) g/dl Albumin (3.4-5.0) g/dl Globulin gm/dL Albumin/Globulin Ratio (1-2) Lipase 269 (73-393) U/L Osmany Results Last 24 Hours: Microbiology 04/08/17 20:40 Urine Culture - Final Urine, Clean Catch NO GROWTH AFTER 2 DAYS Med Orders - Current: Current Medications Dextrose/Sodium Chloride (Dextrose 5%-Normal Saline) 1,000 mls @ 50 mls/hr IV ASDIRECTED [facility] Last Admin: 04/11/17 09:28 Dose: 50 mls/hr Ibuprofen (Motrin) 600 mg PO Q6H PRN PRN Reason: Pain Last Admin: 04/11/17 09:36 Dose: 600 mg Ondansetron HCl (Zofran) 4 mg IVPUSH Q8H PRN PRN Reason: Nausea/Vomiting Last Admin: 04/06/17 04:54 Dose: 4 mg Pantoprazole Sodium (Protonix Iv) 40 mg IVPUSH Q12H [facility] Last Admin: 04/11/17 03:09 Dose: 40 mg Prochlorperazine Edisylate (Compazine) 10 mg IVPUSH Q6H PRN PRN Reason: Nausea/Vomiting Sodium Chloride (Saline Flush) 10 ml FLUSH ASDIRECTED PRN PRN Reason: Keep Vein Open Last Admin: 04/06/17 20:11 Dose: 10 ml Tamsulosin HCl (Flomax) 0.4 mg PO DAILY [facility] Last Admin: 04/11/17 09:30 Dose: 0.4 mg Trazodone HCl (Trazodone) 50 mg PO BEDTIME PRN PRN Reason: Sleep Discontinued Medications Hydrocodone Bitart/Acetaminophen (Alverda 325-5 Mg) 1 tab PO Q6H PRN PRN Reason: Pain (moderate 4-6) Last Admin: 04/10/17 16:42 Dose: 1 tab Enoxaparin Sodium (Lovenox) 40 mg SUBCUT DAILY ONE Stop: 04/05/17 13:46 Last Admin: 04/05/17 14:23 Dose: 40 mg Furosemide (Lasix) 10 mg IVPUSH NOW ONE Stop: 04/09/17 19:54 Last Admin: 04/09/17 20:16 Dose: 10 mg Hydromorphone HCl (Dilaudid) 1 mg IVPUSH ONETIME ONE Stop: 04/05/17 10:37 Last Admin: 04/05/17 10:41 Dose: 1 mg Hydromorphone HCl (Dilaudid) 0.5 mg IVPUSH ONETIME ONE Stop: 04/05/17 11:13 Last Admin: 04/05/17 11:17 Dose: 0.5 mg Hydromorphone HCl (Dilaudid) 1 mg IVPUSH ONETIME ONE Stop: 04/05/17 12:42 Last Admin: 04/05/17 12:47 Dose: 1 mg Hydromorphone HCl (Dilaudid) 1 mg IVPUSH Q3H PRN PRN Reason: Pain (moderate 4-6) Last Admin: 04/10/17 10:49 Dose: 1 mg Sodium Chloride (Normal Saline) 1,000 mls @ 1,000 mls/hr IV .BOLUS STA Stop: 04/05/17 11:33 Last Admin: 04/05/17 10:42 Dose: 1,000 mls/hr Sodium Chloride (Normal Saline) 1,000 mls @ 999 mls/hr IV ONETIME ONE Stop: 04/05/17 12:37 Last Admin: 04/05/17 11:40 Dose: 999 mls/hr Sodium Chloride (Normal Saline) 1,000 mls @ 200 mls/hr IV ASDIRECTED [facility] Stop: 04/05/17 17:59 Last Admin: 04/05/17 16:48 Dose: Not Given Sodium Chloride (Normal Saline) 1,000 mls @ 200 mls/hr IV ASDIRECTED [facility] Last Admin: 04/08/17 10:00 Dose: 100 mls/hr Levofloxacin/Dextrose 750 mg/ (Premix) 150 mls @ 100 mls/hr IV Q24H [facility] Last Admin: 04/11/17 09:30 Dose: 100 mls/hr Magnesium Sulfate 2 gm/ Premix 50 mls @ 25 mls/hr IV ONETIME ONE Stop: 04/06/17 14:59 Last Admin: 04/06/17 13:10 Dose: 25 mls/hr Magnesium Sulfate 2 gm/ Premix 50 mls @ 25 mls/hr IV ONETIME ONE Stop: 04/07/17 16:59 Last Admin: 04/07/17 14:27 Dose: 25 mls/hr Sodium Chloride (Normal Saline) 1,000 mls @ 100 mls/hr IV ASDIRECTED [facility] Dextrose/Sodium Chloride (Dextrose 5%-Normal Saline) 1,000 mls @ 100 mls/hr IV ASDIRECTED [facility] Last Admin: 04/09/17 18:49 Dose: 100 mls/hr Magnesium Sulfate 4 gm/ Premix 100 mls @ 50 mls/hr IV ONETIME ONE Stop: 04/09/17 10:59 Last Admin: 04/09/17 09:34 Dose: 50 mls/hr Sodium Chloride (Normal Saline) 1,000 mls @ 999 mls/hr IV Q1H [facility] Stop: 04/09/17 10:59 Last Admin: 04/09/17 10:34 Dose: 999 mls/hr Ketorolac Tromethamine (Toradol) 60 mg IVPUSH ONETIME ONE Stop: 04/05/17 13:29 Last Admin: 04/05/17 13:38 Dose: 60 mg Ketorolac Tromethamine (Toradol) 30 mg IVPUSH Q6H [facility] Stop: 04/07/17 13:31 Last Admin: 04/07/17 13:40 Dose: 30 mg Ketorolac Tromethamine (Toradol) 30 mg IVPUSH Q8H PRN PRN Reason: Abdominal Pain Ketorolac Tromethamine (Toradol) 30 mg IVPUSH Q8H [facility] Stop: 04/09/17 03:01 Last Admin: 04/09/17 02:00 Dose: 30 mg Multivitamins/Minerals (M.V.I. Adult) 10 ml IV DAILY [facility] Ondansetron HCl (Zofran) 4 mg IVPUSH ONETIME ONE Stop: 04/05/17 10:35 Last Admin: 04/05/17 10:41 Dose: 4 mg Potassium Chloride (Potassium Chloride) 60 meq PO TID [facility] Stop: 04/09/17 21:01 Last Admin: 04/09/17 20:16 Dose: 60 meq Tamsulosin HCl (Flomax) 0.4 mg PO DAILY [facility] Last Admin: 04/08/17 01:10 Dose: Not Given - Problem List & Annotations (1) Alcohol dependence SNOMED Code(s): 94238668, 119630161 Code(s): F10.20 - ALCOHOL DEPENDENCE, UNCOMPLICATED Status: Inactive Current Visit: Yes (2) Pancreatitis, alcoholic, acute SNOMED Code(s): 870559318 Code(s): K85.20 - ALCOHOL INDUCED ACUTE PANCREATITIS WITHOUT NECROSIS OR INFCT Status: Ruled-out Current Visit: Yes Qualifiers: Acute pancreatitis complication: no infection or necrosis Qualified Code(s) : K85.20 - Alcohol induced acute pancreatitis without necrosis or infection (3) Pancreatitis, acute SNOMED Code(s): 011948791 Code(s): K85.90 - ACUTE PANCREATITIS WITHOUT NECROSIS OR INFECTION, UNSP Status: Acute Current Visit: Yes (4) Pseudocyst of pancreas SNOMED Code(s): 338045018 Code(s): K86.3 - PSEUDOCYST OF PANCREAS Status: Acute Current Visit: Yes - My Orders Last 24 Hours: My Active Orders 04/10/17 18:08 Ibuprofen [Motrin] 600 mg PO Q6H PRN 04/10/17 18:27 Communication Order [RC] ASDIRECTED 04/11/17 Lunch Soft Diet [DIET] - Plan Plan:: Impression: Acute on chronic pancreatitis/pancreatic pseudocyst on US Abdominal pain, associated with fatty food; elevated lipase after clear liquids History of alcohol dependence Last ETOH reportedly 5-7 days ago Tobacco dependence, Snuff Plan: Repeat abd US---completed Change diet to clear-->full liquids Pain mgt IVF-->D5 0.9NS, stopped; lasix 10 mg IVP CIWA protocol SZ precautions Gen Surg, will follow DVT/GI prophylaxis DC 24-48 hours LOS>96 hours, slow recovery
[2017-04-11] MEDS ORDERED: Magnesium Sulfate/Water 4 GM in Premix Bag 1 BAG IV ONE (12:00)
--- NOTE | 2017-04-11 14:06 | PCM.DCSUM1 ---
<Alma Melo - Last Filed: 04/11/17 13:58> Discharge Summary - Hospital Course Free Text/Narrative:: 46 year old male who has a PMH of pancreatitis reports no recent ETOH abuse; has mentioned fatty foods precipitating abdominal pain and subsequent admission for acute on chronic pancreatitis. he denies fever or chills, change in bowel habits. has had a decreased appetite, states that his last admission for acute pancreatitis occurred in [place]. An alcohol level is pending; he will be admitted to ICU, CIWA protocol will be started. An abdominal US has been ordered. Hospitalist service is consulted for admission for pancreatitis. He has hx of chronic pancreatitis. Initial abdominal US shows 10.3cm pancreatic psuedocyst with ascites next to liver- done on 04/05/17 Repeat abdominal US on 04/08/17 shows 11.8 heterogeneous mass to rt upper quad consistent with pancreatic pseudocyst ? hemorrhagic, fluid/ascites in abdomen has decreased from prior exam. Patient deferred transfer to [place] for GI evaluation and possible drainage of the pseudocyst. He wishes to follow up in [place] with his specialist there after discharge. Lipase levels trended down during his stay- max level 2,000, down to normal in 200 range at discharge, diet was advanced and tolerated. IV narcotic pain pain medications were weaned and stopped, he was taking ibuprofen for pain. He was up and ambulatory, doing well. He rec'd 6 days of IV levaquin. Consult will be made, has been arranged, as outpatient with Gastroenterology for further treatment and evaluation. He will be discharged home today, continue on motrin, protonix. - Discharge Data Discharge Date: 04/11/17 (04/05/17) Discharge Disposition: Home, Self-Care 01 Condition: Good - Patient Summary/Data Operative Procedure(s) Performed: None Complications: None Consults: Consultations 04/05/17 17:22 Consult to Physician [CONS] Routine 04/08/17 09:00 Consult to Dietary [Consult to Associate Quality Engineer] [CONS] Routine Labs Pending at D/C: None Recommended Follow-up Testing/Procedures: Follow up with Gastroenterology for further eval/recommendations Follow up with PCP within one week of discharge. Planned Operative Procedure(s) after DC: None Hospital Course: As above - Patient Instructions Diet: GI Soft/Low Residue/Low Fiber (advance as tolerated) Activity: As Tolerated Driving: May Drive Today Showering/Bathing: May Shower Notify Provider of: Fever, Increased Pain, Nausea and/or Vomiting - Discharge Plan Prescriptions/Med Rec: Ibuprofen [IJD: Ibuprofen] 600 mg PO Q8H PRN #30 tablet PRN Reason: Pain (Moderate 4-6) Tamsulosin [Flomax] 0.4 mg PO DAILY #30 cap.er Home Medications: Home Meds Ibuprofen [IJD: Ibuprofen] 600 mg PO Q8H PRN #30 tablet 04/11/17 [Rx] Tamsulosin [Flomax] 0.4 mg PO DAILY #30 cap.er 04/11/17 [Rx] Patient Handouts: Acute Pancreatitis, [id number], Alcohol Abuse and Nutrition , Tamsulosin capsules, Smokeless Tobacco Use Forms: ED Department Discharge Referrals: PCP,Not In Area [Primary Care Provider] - - Discharge Summary/Plan Comment DC Time >30 min.: Yes (40 min) - General Info Date of Service: 04/11/17 Admission Dx/Problem (Free Text: Admission Diagnosis/Problem Admission Diagnosis/Problem Pancreatitis Functional Status: Reports: Pain Controlled, Tolerating Diet, Ambulating, Urinating. Denies: New Symptoms - Review of Systems General: Reports: No Symptoms HEENT: Reports: No Symptoms Pulmonary: Reports: No Symptoms Cardiovascular: Reports: No Symptoms Gastrointestinal: Reports: Abdominal Pain (minimal to none--significantly improved). Denies: Constipation, Diarrhea, Nausea, Vomiting Genitourinary: Reports: No Symptoms Musculoskeletal: Reports: No Symptoms Skin: Reports: No Symptoms Neurological: Reports: No Symptoms Psychiatric: Reports: No Symptoms - Patient Data Vitals - Most Recent: Last Vital Signs Temp 98.6 F 04/11/17 11:25 Pulse 83 04/11/17 11:25 Resp 16 04/11/17 11:25 BP 111/73 04/11/17 11:25 Pulse Ox 96 04/11/17 11:25 Weight - Most Recent: 79.407 kg I&O - Last 24 hours: Intake & Output 04/10/17 04/11/17 04/11/17 22:59 06:59 14:59 Intake Total 2943 950 Output Total 600 2400 Balance 2343 -1450 Lab Results - Last 24 hrs: Laboratory Results - last 24 hr 04/11/17 04/11/1704/11/17 Range/Units 10:10 10:10 10:10 WBC 7.95 (4.23-9.07) K/mm3 RBC 4.64 (4.63-6.08) M/mm3 Hgb 12.7 L (13.7-17.5) gm/L Hct 39.2 L (40.1-51.0) % MCV 84.5 (79.0-92.2) fl MCH 27.4 (25.7-32.2) pg MCHC 32.4 (32.2-35.5) g/dl RDW Std Deviation 55.6 H (35.1-43.9) fL Plt Count 235 (163-337) K/mm3 MPV 10.1 (9.4-12.3) fl Neut % (Auto) 81.6 H (34.0-67.9) % Lymph % (Auto) 8.2 L (21.8-53.1) % [place] % (Auto) 8.4 (5.3-12.2) % Eos % (Auto) 1.6 (0.8-7.0) Baso % (Auto) 0.1 (0.1-1.2) % Neut # (Auto) 6.48 H (1.78-5.38) K/mm3 Lymph # (Auto) 0.65 L (1.32-3.57) K/mm3 [place] # (Auto) 0.67 (0.30-0.82) K/mm3 Eos # (Auto) 0.13 (0.04-0.54) K/mm3 Baso # (Auto) 0.01 (0.01-0.08) K/mm3 Manual Slide Review Abnormal smear Sodium 140 (136-145) mEq/L Potassium 4.1 (3.5-5.1) mEq/L Chloride 104 (98-107) mEq/L Carbon Dioxide 29 (21-32) mEq/L Anion Gap 11.1 (5-15) BUN 4 L (7-18) mg/dL Creatinine 1.0 (0.7-1.3) mg/dL Est Cr Clr Drug Dosing 100.40 mL/min Estimated GFR (MDRD) > 60 (>60) mL/min BUN/Creatinine Ratio 4.0 L (14-18) Glucose 97 (74-106) mg/dL Calcium 8.8 (8.5-10.1) mg/dL Magnesium 1.4 L (1.8-2.4) mg/dl Total Bilirubin 0.7 (0.2-1.0) mg/dL AST 20 (15-37) U/L ALT 30 (16-63) U/L Alkaline Phosphatase 72 (46-116) U/L C-Reactive Protein 17.7 H* (<1.0) mg/dL Total Protein 6.2 L (6.4-8.2) g/dl Albumin 2.2 L (3.4-5.0) g/dl Globulin 4.0 gm/dL Albumin/Globulin Ratio 0.6 L (1-2) Lipase 269 (73-393) U/L DARLYN Results - Last 24 hrs: Microbiology 04/08/17 20:40 Urine Culture - Final Urine, Clean Catch NO GROWTH AFTER 2 DAYS Med Orders - Current: Current Medications Magnesium Sulfate 4 gm/ Premix 100 mls @ 25 mls/hr IV ONETIME ONE Stop: 04/11/17 15:59 Last Admin: 04/11/17 12:31 Dose: 25 mls/hr Ibuprofen (Motrin) 600 mg PO Q6H PRN PRN Reason: Pain Last Admin: 04/11/17 09:36 Dose: 600 mg Ondansetron HCl (Zofran) 4 mg IVPUSH Q8H PRN PRN Reason: Nausea/Vomiting Last Admin: 04/06/17 04:54 Dose: 4 mg Pantoprazole Sodium (Protonix Iv) 40 mg IVPUSH Q12H [facility] Last Admin: 04/11/17 03:09 Dose: 40 mg Prochlorperazine Edisylate (Compazine) 10 mg IVPUSH Q6H PRN PRN Reason: Nausea/Vomiting Sodium Chloride (Saline Flush) 10 ml FLUSH ASDIRECTED PRN PRN Reason: Keep Vein Open Last Admin: 04/06/17 20:11 Dose: 10 ml Tamsulosin HCl (Flomax) 0.4 mg PO DAILY SAJAN Last Admin: 04/11/17 09:30 Dose: 0.4 mg Trazodone HCl (Trazodone) 50 mg PO BEDTIME PRN PRN Reason: Sleep Discontinued Medications Hydrocodone Bitart/Acetaminophen ([place] 325-5 Mg) 1 tab PO Q6H PRN PRN Reason: Pain (moderate 4-6) Last Admin: 04/10/17 16:42 Dose: 1 tab Enoxaparin Sodium (Lovenox) 40 mg SUBCUT DAILY ONE Stop: 04/05/17 13:46 Last Admin: 04/05/17 14:23 Dose: 40 mg Furosemide (Lasix) 10 mg IVPUSH NOW ONE Stop: 04/09/17 19:54 Last Admin: 04/09/17 20:16 Dose: 10 mg Hydromorphone HCl (Dilaudid) 1 mg IVPUSH ONETIME ONE Stop: 04/05/17 10:37 Last Admin: 04/05/17 10:41 Dose: 1 mg Hydromorphone HCl (Dilaudid) 0.5 mg IVPUSH ONETIME ONE Stop: 04/05/17 11:13 Last Admin: 04/05/17 11:17 Dose: 0.5 mg Hydromorphone HCl (Dilaudid) 1 mg IVPUSH ONETIME ONE Stop: 04/05/17 12:42 Last Admin: 04/05/17 12:47 Dose: 1 mg Hydromorphone HCl (Dilaudid) 1 mg IVPUSH Q3H PRN PRN Reason: Pain (moderate 4-6) Last Admin: 04/10/17 10:49 Dose: 1 mg Sodium Chloride (Normal Saline) 1,000 mls @ 1,000 mls/hr IV .BOLUS STA Stop: 04/05/17 11:33 Last Admin: 04/05/17 10:42 Dose: 1,000 mls/hr Sodium Chloride (Normal Saline) 1,000 mls @ 999 mls/hr IV ONETIME ONE Stop: 04/05/17 12:37 Last Admin: 04/05/17 11:40 Dose: 999 mls/hr Sodium Chloride (Normal Saline) 1,000 mls @ 200 mls/hr IV ASDIRECTED SAJAN Stop: 04/05/17 17:59 Last Admin: 04/05/17 16:48 Dose: Not Given Sodium Chloride (Normal Saline) 1,000 mls @ 200 mls/hr IV ASDIRECTED SAJAN Last Admin: 04/08/17 10:00 Dose: 100 mls/hr Levofloxacin/Dextrose 750 mg/ (Premix) 150 mls @ 100 mls/hr IV Q24H [facility] Last Admin: 04/11/17 09:30 Dose: 100 mls/hr Magnesium Sulfate 2 gm/ Premix 50 mls @ 25 mls/hr IV ONETIME ONE Stop: 04/06/17 14:59 Last Admin: 04/06/17 13:10 Dose: 25 mls/hr Magnesium Sulfate 2 gm/ Premix 50 mls @ 25 mls/hr IV ONETIME ONE Stop: 04/07/17 16:59 Last Admin: 04/07/17 14:27 Dose: 25 mls/hr Sodium Chloride (Normal Saline) 1,000 mls @ 100 mls/hr IV ASDIRECTED [facility] Dextrose/Sodium Chloride (Dextrose 5%-Normal Saline) 1,000 mls @ 100 mls/hr IV ASDIRECTED [facility] Last Admin: 04/09/17 18:49 Dose: 100 mls/hr Magnesium Sulfate 4 gm/ Premix 100 mls @ 50 mls/hr IV ONETIME ONE Stop: 04/09/17 10:59 Last Admin: 04/09/17 09:34 Dose: 50 mls/hr Sodium Chloride (Normal Saline) 1,000 mls @ 999 mls/hr IV Q1H [facility] Stop: 04/09/17 10:59 Last Admin: 04/09/17 10:34 Dose: 999 mls/hr Dextrose/Sodium Chloride (Dextrose 5%-Normal Saline) 1,000 mls @ 50 mls/hr IV ASDIRECTED [facility] Last Admin: 04/11/17 09:28 Dose: 50 mls/hr Ketorolac Tromethamine (Toradol) 60 mg IVPUSH ONETIME ONE Stop: 04/05/17 13:29 Last Admin: 04/05/17 13:38 Dose: 60 mg Ketorolac Tromethamine (Toradol) 30 mg IVPUSH Q6H [facility] Stop: 04/07/17 13:31 Last Admin: 04/07/17 13:40 Dose: 30 mg Ketorolac Tromethamine (Toradol) 30 mg IVPUSH Q8H PRN PRN Reason: Abdominal Pain Ketorolac Tromethamine (Toradol) 30 mg IVPUSH Q8H [facility] Stop: 04/09/17 03:01 Last Admin: 04/09/17 02:00 Dose: 30 mg Multivitamins/Minerals (M.V.I. Adult) 10 ml IV DAILY [facility] Ondansetron HCl (Zofran) 4 mg IVPUSH ONETIME ONE Stop: 04/05/17 10:35 Last Admin: 04/05/17 10:41 Dose: 4 mg Potassium Chloride (Potassium Chloride) 60 meq PO TID SAJAN Stop: 04/09/17 21:01 Last Admin: 04/09/17 20:16 Dose: 60 meq Tamsulosin HCl (Flomax) 0.4 mg PO DAILY [facility] Last Admin: 04/08/17 01:10 Dose: Not Given - Exam Quality Assessment: Reports: DVT Prophylaxis General: Reports: Alert, Oriented, Cooperative, No Acute Distress HEENT: Reports: Pupils Equal Lungs: Reports: Normal Respiratory Effort GI/Abdominal Exam: Normal Bowel Sounds, Soft, Tender (minimal), Other (minimal distention). No: Guarding, Rigid, Rebound (Male) Exam: Deferred Rectal (Males) Exam: Deferred Extremities: Normal Inspection Neurological: Reports: No New Focal Deficit Psy/Mental Status: Reports: Alert, Normal Affect, Normal Mood *Q Meaningful Use (DIS) - VTE *Q VTE Criteria *Q: - Stroke *Q Stroke Criteria *Q: - AMI *Q AMI Criteria *Q: <Nicci Simmons - Last Filed: 04/11/17 18:47> Discharge Summary - Hospital Course Free Text/Narrative:: Feeling better, tolerating diet; DC today. See above for follow up; has discussed with PCP/GI in [place] possibility of drainage of pseudocyst, outside provider recommended waiting for inflammation to subside per patient. - Discharge Diagnosis/Problem(s) (1) Alcohol dependence SNOMED Code(s): 47341314, 355767401 ICD Code: F10.20 - ALCOHOL DEPENDENCE, UNCOMPLICATED Status: Inactive Current Visit: Yes (2) Pancreatitis, alcoholic, acute SNOMED Code(s): 297061536 ICD Code: K85.20 - ALCOHOL INDUCED ACUTE PANCREATITIS WITHOUT NECROSIS OR INFCT Status: Ruled-out Current Visit: Yes Qualifiers: Acute pancreatitis complication: no infection or necrosis Qualified Code(s) : K85.20 - Alcohol induced acute pancreatitis without necrosis or infection (3) Pancreatitis, acute SNOMED Code(s): 022567060 ICD Code: K85.90 - ACUTE PANCREATITIS WITHOUT NECROSIS OR INFECTION, UNSP Status: Acute Current Visit: Yes (4) Pseudocyst of pancreas SNOMED Code(s): 017905520 ICD Code: K86.3 - PSEUDOCYST OF PANCREAS Status: Acute Current Visit: Yes - Patient Summary/Data Consults: Consultations 04/05/17 17:22 Consult to Physician [CONS] Routine 04/08/17 09:00 Consult to Dietary [Consult to Associate Quality Engineer] [CONS] Routine - Patient Data Vitals - Most Recent: Last Vital Signs Temp 37.3 C 04/11/17 15:59 Pulse 76 04/11/17 15:59 Resp 12 04/11/17 15:59 BP 111/74 04/11/17 15:59 Pulse Ox 95 04/11/17 15:59 I&O - Last 24 hours: Intake & Output 04/11/17 04/11/17 04/11/17 06:59 14:59 22:59 Intake Total 950 480 920 Output Total 2400 3025 Balance -1450 480 -2105 Lab Results - Last 24 hrs: Laboratory Results - last 24 hr 04/11/17 04/11/17 04/11/17 Range/Units 10:10 10:10 10:10 WBC 7.95 (4.23-9.07) K/mm3 RBC 4.64 (4.63-6.08) M/mm3 Hgb 12.7 L (13.7-17.5) gm/L Hct 39.2 L (40.1-51.0) % MCV 84.5 (79.0-92.2) fl MCH 27.4 (25.7-32.2) pg MCHC 32.4 (32.2-35.5) g/dl RDW Std Deviation 55.6 H (35.1-43.9) fL Plt Count 235 (163-337) K/mm3 MPV 10.1 (9.4-12.3) fl Neut % (Auto) 81.6 H (34.0-67.9) % Lymph % (Auto) 8.2 L (21.8-53.1) % [place] % (Auto) 8.4 (5.3-12.2) % Eos % (Auto) 1.6 (0.8-7.0) Baso % (Auto) 0.1 (0.1-1.2) % Neut # (Auto) 6.48 H (1.78-5.38) K/mm3 Lymph # (Auto) 0.65 L (1.32-3.57) K/mm3 [place] # (Auto) 0.67 (0.30-0.82) K/mm3 Eos # (Auto) 0.13 (0.04-0.54) K/mm3 Baso # (Auto) 0.01 (0.01-0.08) K/mm3 Manual Slide Review Abnormal smear Sodium 140 (136-145) mEq/L Potassium 4.1 (3.5-5.1) mEq/L Chloride 104 (98-107) mEq/L Carbon Dioxide 29 (21-32) mEq/L Anion Gap 11.1 (5-15) BUN 4 L (7-18) mg/dL Creatinine 1.0 (0.7-1.3) mg/dL Est Cr Clr Drug Dosing 100.40 mL/min Estimated GFR (MDRD) > 60 (>60) mL/min BUN/Creatinine Ratio 4.0 L (14-18) Glucose 97 (74-106) mg/dL Calcium 8.8 (8.5-10.1) mg/dL Magnesium 1.4 L (1.8-2.4) mg/dl Total Bilirubin 0.7 (0.2-1.0) mg/dL AST 20 (15-37) U/L ALT 30 (16-63) U/L Alkaline Phosphatase 72 (46-116) U/L C-Reactive Protein 17.7 H* (<1.0) mg/dL Total Protein 6.2 L (6.4-8.2) g/dl Albumin 2.2 L (3.4-5.0) g/dl Globulin 4.0 gm/dL Albumin/Globulin Ratio 0.6 L (1-2) Lipase 269 (73-393) U/L DARLYN Results - Last 24 hrs: Microbiology 04/08/17 20:40 Urine Culture - Final Urine, Clean Catch NO GROWTH AFTER 2 DAYS Med Orders - Current: Current Medications Ibuprofen (Motrin) 600 mg PO Q6H PRN PRN Reason: Pain Last Admin: 04/11/17 09:36 Dose: 600 mg Ondansetron HCl (Zofran) 4 mg IVPUSH Q8H PRN PRN Reason: Nausea/Vomiting Last Admin: 04/06/17 04:54 Dose: 4 mg Pantoprazole Sodium (Protonix Iv) 40 mg IVPUSH Q12H [facility] Last Admin: 04/11/17 14:46 Dose: 40 mg Prochlorperazine Edisylate (Compazine) 10 mg IVPUSH Q6H PRN PRN Reason: Nausea/Vomiting Sodium Chloride (Saline Flush) 10 ml FLUSH ASDIRECTED PRN PRN Reason: Keep Vein Open Last Admin: 04/06/17 20:11 Dose: 10 ml Tamsulosin HCl (Flomax) 0.4 mg PO DAILY SAJAN Last Admin: 04/11/17 09:30 Dose: 0.4 mg Trazodone HCl (Trazodone) 50 mg PO BEDTIME PRN PRN Reason: Sleep Discontinued Medications Hydrocodone Bitart/Acetaminophen ([place] 325-5 Mg) 1 tab PO Q6H PRN PRN Reason: Pain (moderate 4-6) Last Admin: 04/10/17 16:42 Dose: 1 tab Enoxaparin Sodium (Lovenox) 40 mg SUBCUT DAILY ONE Stop: 04/05/17 13:46 Last Admin: 04/05/17 14:23 Dose: 40 mg Furosemide (Lasix) 10 mg IVPUSH NOW ONE Stop: 04/09/17 19:54 Last Admin: 04/09/17 20:16 Dose: 10 mg Hydromorphone HCl (Dilaudid) 1 mg IVPUSH ONETIME ONE Stop: 04/05/17 10:37 Last Admin: 04/05/17 10:41 Dose: 1 mg Hydromorphone HCl (Dilaudid) 0.5 mg IVPUSH ONETIME ONE Stop: 04/05/17 11:13 Last Admin: 04/05/17 11:17 Dose: 0.5 mg Hydromorphone HCl (Dilaudid) 1 mg IVPUSH ONETIME ONE Stop: 04/05/17 12:42 Last Admin: 04/05/17 12:47 Dose: 1 mg Hydromorphone HCl (Dilaudid) 1 mg IVPUSH Q3H PRN PRN Reason: Pain (moderate 4-6) Last Admin: 04/10/17 10:49 Dose: 1 mg Sodium Chloride (Normal Saline) 1,000 mls @ 1,000 mls/hr IV .BOLUS STA Stop: 04/05/17 11:33 Last Admin: 04/05/17 10:42 Dose: 1,000 mls/hr Sodium Chloride (Normal Saline) 1,000 mls @ 999 mls/hr IV ONETIME ONE Stop: 04/05/17 12:37 Last Admin: 04/05/17 11:40 Dose: 999 mls/hr Sodium Chloride (Normal Saline) 1,000 mls @ 200 mls/hr IV ASDIRECTED SAJAN Stop: 04/05/17 17:59 Last Admin: 04/05/17 16:48 Dose: Not Given Sodium Chloride (Normal Saline) 1,000 mls @ 200 mls/hr IV ASDIRECTED SAJAN Last Admin: 04/08/17 10:00 Dose: 100 mls/hr Levofloxacin/Dextrose 750 mg/ (Premix) 150 mls @ 100 mls/hr IV Q24H [facility] Last Admin: 04/11/17 09:30 Dose: 100 mls/hr Magnesium Sulfate 2 gm/ Premix 50 mls @ 25 mls/hr IV ONETIME ONE Stop: 04/06/17 14:59 Last Admin: 04/06/17 13:10 Dose: 25 mls/hr Magnesium Sulfate 2 gm/ Premix 50 mls @ 25 mls/hr IV ONETIME ONE Stop: 04/07/17 16:59 Last Admin: 04/07/17 14:27 Dose: 25 mls/hr Sodium Chloride (Normal Saline) 1,000 mls @ 100 mls/hr IV ASDIRECTED SAJAN Dextrose/Sodium Chloride (Dextrose 5%-Normal Saline) 1,000 mls @ 100 mls/hr IV ASDIRECTED [facility] Last Admin: 04/09/17 18:49 Dose: 100 mls/hr Magnesium Sulfate 4 gm/ Premix 100 mls @ 50 mls/hr IV ONETIME ONE Stop: 04/09/17 10:59 Last Admin: 04/09/17 09:34 Dose: 50 mls/hr Sodium Chloride (Normal Saline) 1,000 mls @ 999 mls/hr IV Q1H SAJAN Stop: 04/09/17 10:59 Last Admin: 04/09/17 10:34 Dose: 999 mls/hr Dextrose/Sodium Chloride (Dextrose 5%-Normal Saline) 1,000 mls @ 50 mls/hr IV ASDIRECTED [facility] Last Admin: 04/11/17 09:28 Dose: 50 mls/hr Magnesium Sulfate 4 gm/ Premix 100 mls @ 25 mls/hr IV ONETIME ONE Stop: 04/11/17 15:59 Last Admin: 04/11/17 12:31 Dose: 25 mls/hr Ketorolac Tromethamine (Toradol) 60 mg IVPUSH ONETIME ONE Stop: 04/05/17 13:29 Last Admin: 04/05/17 13:38 Dose: 60 mg Ketorolac Tromethamine (Toradol) 30 mg IVPUSH Q6H [facility] Stop: 04/07/17 13:31 Last Admin: 04/07/17 13:40 Dose: 30 mg Ketorolac Tromethamine (Toradol) 30 mg IVPUSH Q8H PRN PRN Reason: Abdominal Pain Ketorolac Tromethamine (Toradol) 30 mg IVPUSH Q8H [facility] Stop: 04/09/17 03:01 Last Admin: 04/09/17 02:00 Dose: 30 mg Multivitamins/Minerals (M.V.I. Adult) 10 ml IV DAILY [facility] Ondansetron HCl (Zofran) 4 mg IVPUSH ONETIME ONE Stop: 04/05/17 10:35 Last Admin: 04/05/17 10:41 Dose: 4 mg Potassium Chloride (Potassium Chloride) 60 meq PO TID [facility] Stop: 04/09/17 21:01 Last Admin: 04/09/17 20:16 Dose: 60 meq Tamsulosin HCl (Flomax) 0.4 mg PO DAILY [facility] Last Admin: 04/08/17 01:10 Dose: Not Given *Q Meaningful Use (DIS) - VTE *Q VTE Criteria *Q: - Stroke *Q Stroke Criteria *Q: - AMI *Q AMI Criteria *Q:
[2017-04-11 16:00] VITALS: BP 111/74
== END 2017-04-11 18:55 | disposition home or self-care (01) | DRG 282 ==
LOC: JD.ED 10:13 → JD.ICU 12:35 → JD.MS 04-09 13:08
PROVIDERS: ADMIT Internal Medicine Cardiovascular Disease; ATTEND Internal Medicine Cardiovascular Disease
DX: K85.20 Alcohol induced acute pancreatitis without necrosis or infection (principal); K86.3 Pseudocyst of pancreas; K86.0 Alcohol-induced chronic pancreatitis; F10.20 Alcohol dependence, uncomplicated; F17.220 Nicotine dependence, chewing tobacco, uncomplicated; Z88.0 Allergy status to penicillin
CPT/HCPCS: 36415; 74022; 74022-26; 76700; 76700-26; 76705; 76705-26; 80048; 80053; 81001; 83690; 83735; 84484; 85025; 86140; 87086; 93005; 96361; 96374; 96375; 96376; 99284; 99285-25; A9270-GY; C9113; G0480; J1170; J1650; J1885; J1956; J2405; J3475; J7040; J7042; J7050